=== PATIENT | male | born 1950 | race Caucasian/White ===

== ENCOUNTER 2025-04-03 14:02 | Emergency (ER) | payer MEDICARE, SELFPAY ==
--- NOTE | ~2025-04-03 | CT_ITS ---
CLINICAL INDICATION: Abdominal pain and diarrhea COMPARISON: None. TECHNIQUE: Multiple contiguous axial images of the abdomen and pelvis were performed without the admi nistration of intravenous contrast The dose-length product (DLP) was 253.27 mGy-cm. Automated exposure control and iterative reconstruction technique were employed. FINDINGS/OBSERVATIONS: Visualized lower thorax: The bilateral lung bases are clear. The heart is of normal size, without pericardial effusion. Small hiatal hernia is present. Liver: The liver demonstrates homogeneous attenuation and is enlarged measuring 20 cm in longitudinal dimens ion. Gallbladder and biliary system: The gallbladder is only minimally distended, and otherwise unremarkable. Pancreas: Limited evaluation of the pancreas secondary to the lack of intravenous contrast. Spleen: The spleen demonstrates homogeneous attenuation and is not enlarged. Kidneys: Multiple 2 and 3 mm nonobstructing stones within the bilateral kidneys. The remainder of the bilateral kidneys are otherwise unremarkable, without hydronephrosis or addition al renal calculi. Adrenal glands: Unremarkable. Gastrointestinal tract: Colonic diverticulosis without surrounding inflammatory change. Prominent loops of small bowel with minimal dilatation and mural thickening are identified within the mid abdomen, to the left of midline. Appendix: The appendix is of normal caliber (axial series, images 102 through 128) Vasculature: Densely calcified atherosclerotic disease. Lymph nodes: Limited evaluation without intravenous contrast. Pelvic structures: The bladder is decompressed and demonstrates thickened lo with surrounding inflammatory change. The prostate gland is not enlarged. Body wall and musculoskeletal: Large fat-containing left inguinal hernia. Age-appropriate degenerative disease within the lumbosacral spine IMPRESSION: Prominent loops of small bowel with minimal dilatation and mural thickening within the mid abdomen, t o the left of midline for which a focal enteritis is suspected. Otherwise, no acute pathology within the abdomen or pelvis, as detailed above. Reviewed, dictated and finalized at location A. IMPRESSION: Prominent loops of small bowel with minimal dilatation and mural thickening wit hin the mid abdomen, to the left of midline for which a focal enteritis is susp ected. Otherwise, no acute pathology within the abdomen or pelvis, as detailed above.
[2025-04-03 14:04] VITALS: BP 147/79; PULSE 100; RESP 20; TEMP 36.6; O2SAT 99
--- NOTE | 2025-04-03 14:46 | ED_ITS ---
HPI - Abdominal Pain General Chief Complaint: Abdominal Pain Stated Complaint: upset stomache Time Seen by Provider: 04/03/25 14:27 Source: patient Mode of arrival: ambulatory Limitations: no limitations History of Present Illness HPI narrative: patient is a 74-year-old male with dark stools for 4 days and a sore throat for a week and a half. He also complained of sleep issues and chronic pain and we discussed that is not going to be reviewed today per chronicity. He has associated abdominal pain diffusely. MD elicited complaint: abdominal pain Pertinent past history: none Onset (ago): day(s) (4) Pain Consistency: constant Location: diffuse Severity: mild Pain scale (0-10): 3 Quality: cramping and sharp Radiation: none Migration to: no migration Exacerbating factors: other ( stress per patient) Relieving factors: nothing Context: confirms other ( patient having dark stools for 4 days as well as some abdominal pain and a sore throat for a week and a half.) Associated symptoms: nausea, diarrhea and melena Review of Systems 2 Review of Systems: All systems reviewed & are unremarkable except as noted in HPI and below Constitutional: Constitutional: Reports no additional constitutional complaints Eyes: Eyes: Reports no additional eye complaints ENT: Reports system reviewed and no additional complaints, except as documented Cardiovascular: Cardiovascular: Reports no additional cardiovascular complaints Respiratory: Respiratory: Reports no additional respiratory complaints Gastrointestinal: Gastrointestinal: Reports no additional gastrointestinal complaints Genitourinary: Genitourinary: Reports no additional male genitourinary complaints Musculoskeletal: Musculoskeletal: Reports no additional musculoskeletal complaints Integumentary/Breasts: Skin/Breast: Reports system reviewed and no additional complaints, except as docu Neurologic: Reports system reviewed and no additional complaints, except as documented Psychiatric: Psychiatric: Reports no additional psychiatric complaints Endocrine: Endocrine: Reports no additional endocrine complaints Hematologic/Lymphatic: Hematologic/Lymphatic: Reports no additional hematologic/lymphatic complaints Allergic/Immunologic: Allergic/Immunologic: Reports no additional allergic/immunologic complaints Exam 2 Const: General: ill appearing ( Pale) Nutritional Appearance: well nourished Orientation/consciousness: patient oriented x3 Limitations: no limitations HENMT: Head: normal to inspection Ears: external ears normal F chrissy/Nose/Sinus: Normal external nose present Eyes: Conjunctivae: conjunctivae normal Pupils: Equal, round and reactive pupils present EOM: EOMs intact bilaterally Neck: Neck: normal visual inspection Chest: Chest palpation & inspection: normal inspection of the chest Resp: Effort & Inspection: normal respiratory effort and not labored A uscultation: clear to auscultation bilaterally and no crackles Cardio: Rate: regular rate Rhythm: regular rhythm Heart sounds: no murmurs GI: Inspection: non-distended GI Palp: Yes Soft to palpation, Yes Tenderness to palpation present (GI) ( diffusely), No Guarding due to palpation present (GI), No Rigid due to palpation, No Hernia present, No Palpable mass present and No Rebound tenderness present Auscultation: normal bowel sounds : General: Yes bladder normal to palpation Back/Spine/Pelvis: Back: no CVA tenderness Skin: General skin exam: No normal color, no jaundice and pallor Rashes: no rashes Wounds: no wounds Neuro: General: patient oriented x3, moves all extremities, no meningeal signs, no focal motor deficits and CN's II-XI intact bilaterally Cranial nerves: Yes Nystagmus not present Speech: normal speech Gait exam (Neuro): Normal gait present Extrem: General: normal to inspection Psych: Mental Status: mental status grossly normal Affect: normal affect Attitude: cooperative Course Vital Signs Vital signs: Vital Signs Temperature 36.6 C 04/03/25 14:04 Pulse Rate 100 04/03/25 14:04 Respiratory Rate 20 04/03/25 14:04 Blood Pressure 147/79 H 04/03/25 14:04 Pulse Oximetry 99 04/03/25 14:04 Oxygen Delivery Room Air 04/03/25 14:04 Temperature 36.5 C 04/03/25 18:10 Pulse Rate 89 04/03/25 18:10 Respiratory Rate 16 04/03/25 18:10 Blood Pressure 170/76 H 04/03/25 18:10 Pulse Oximetry 100 04/03/25 18:10 Oxygen Delivery Room Air 04/03/25 18:10 MDM - Abdominal Pain MDM Narrative Medical decision making narrative: patient is a 74-year-old male with a sore throat, abdominal pain and nausea with dark stools for 4 days. We will do an abdominal pain workup and strep. patient was presented with the results which is enteritis and an elevated white blood count, blood in the stool and internal bleeding, low sodium and high potassium. I explained to the patient that he needs treatment at this time and to be admitted. Patient said he had to get home to his dogs and he cannot prepare to stay or stay longer in the emergency room. Patient is AAO x4 and understands the risks and benefits which were all explained to him with the nurse present. Patient has the decision making capacity and reasoning to sign this form properly understanding the fact that he could have morbidity and mortality secondary to these findings. He understands that he needs treatment immediately now that we have made these findings but he would like to leave [facility] at this time. Lab Data Attestation: I reviewed the patient's lab results. 04/03/25 15:31 04/03/25 15:31 Labs: Lab Results 04/03/25 04/03/25 Range/Units 15:31 16:45 WBC 15.5 H (4.8-10.8) K/mm3 RBC 2.96 L (4.70-6.10) M/mm3 Hgb 9.3 L (12.4-15.3) g/dL Hct 27.3 L (37.0-46.0) % MCV 92.2 (78.0-102.0) fL MCH 31.4 H (27.0-31.0) pg MCHC 34.1 (32-36) g/dL RDW 12.5 (11.6-14.4) % Plt Count 303 (150-420) K/mm3 MPV 8.1 L (8.7-11.0) fl Immature Gran % (Auto) 1.2 H (0.0-0.0) % Neut % (Auto) 78.6 H (50.0-70.0) % Lymph % (Auto) 9.0 L (18.0-42.0) % [place] % (Auto) 10.1 (2.0-11.0) % Eos % (Auto) 0.7 L (1.0-6.0) % Baso % (Auto) 0.4 (0.0-1.0) % Lymph # (Auto) 1.40 (1.10-4.50) K/mm3 [place] # (Auto) 1.57 H (0.10-0.90) K/mm3 Eos # (Auto) 0.11 (0.02-0.50) K/mm3 Baso # (Auto) 0.06 (0.00-0.10) K/mm3 Abs Immat Gran (auto) 0.18 H (0.00-0.00) K/mm3 Absolute Neuts (auto) 12.19 H (1.70-7.20) K/mm3 Absolute Nucleated RBC 0.00 (0.00-0.00) K/mm3 Nucleated RBC % 0.0 (0-0.0) % PT 9.9 (9.50-12.1) Seconds INR 0.9 APTT 28.8 (23.9-30.70) Sec Sodium 121 L (137-145) mmol/L Potassium 5.2 H (3.4-5.0) mmol/L Chloride 91 L (98-107) mmol/L Carbon Dioxide 26 (22-30) mmol/L Anion Gap 4 (4-12) mmol/L BUN 13 (9-20) mg/dL Creatinine 0.60 L (0.7-1.3) mg/dL Estim Creat Clear Calc 91 ml/min Estimated GFR > 60 (59 - ) Glucose 103 (65-110) mg/dL Calculated Osmolality 252 L (285-295) mOsm/kg Lactic Acid 1.4 (0.4-2.0) mmol/L Calcium 8.6 (8.4-10.2) mg/dL Total Bilirubin 0.4 (0.2-1.3) mg/dL AST 30 (17-59) U/L ALT 17 (6-50) U/L Alkaline Phosphatase 75 (38-126) U/L Total Protein 6.7 (6.3-8.2) g/dL Albumin 3.7 (3.5-5.1) g/dL Lipase 53 (16-77) U/L Urine Color Yellow (Yellow) Urine Appearance Clear (Clear) Urine pH 6.0 (5.0-8.0) Ur Specific [place] 1.015 (1.010-1.020) Urine Protein Negative (Negative) Urine Glucose (UA) Negative (Negative) Urine Ketones 1+ H (Negative) Ur Blood (Man) Negative (Negative) Urine Nitrate Negative (Negative) Urine Bilirubin Negative (Negative) Urine Urobilinogen 0.2 (0.2-1.0) mg/dL Leukocyte Esterase Rfl Negative (Negative) IBIS/UL Stool Occult Blood Positive A (Negative) Group A Strep (PCR) Not detected (Negative) Imaging Data Attestation: I personally reviewed and interpreted this imaging study as follows: Radiologist's impression: ITS Impressions Abdomen/Pelvis CT 04/03/25 15:34 IMPRESSION: Prominent loops of small bowel with minimal dilatation and mural thickening within the mid abdomen, to the left of midline for which a focal enteritis is suspected. Otherwise, no acute pathology within the abdomen or pelvis, as detailed above. Discharge Plan Discharge Clinical Impression: Enteritis, Melena, Hyponatremia, Hyperkalemia, Fecal occult blood test positive Leukocytosis Qualifiers: Leukocytosis type: unspecified Qualified Code(s): D72.829 - Elevated white blood cell count, unspecified Patient Disposition: Left Against Medical Advice Condition: Serious Patient Language: Tajik Follow-up/Referrals: UNKNOWN,DOCTOR [Non-Staff] - Time of Disposition: 19:09
[2025-04-03 15:37] LABS: Add Urine Microscopic? NO; Appearance Urine Clear (Clear); Basophils Absolute Auto 0.06 K/mm3 (0.00-0.10); Basophils Percent Auto 0.4 % (0.0-1.0); Bilirubin Urine Negative (Negative); Blood Urine Negative (Negative); Color Urine Yellow (Yellow); Eosinophils Absolute Auto 0.11 K/mm3 (0.02-0.50); Eosinophils Percent Auto 0.7 % (1.0-6.0); Glucose Urine UA Negative (Negative); Hematocrit 27.3 % (37.0-46.0); Hemoglobin 9.3 g/dL (12.4-15.3); Immature Granulocyte Absolute 0.18 K/mm3 (0.00-0.00); Immature Granulocyte Percent A 1.2 % (0.0-0.0); Ketones Urine 1+ (Negative); Leukocyte Esterase Ur Negative LEU/UL (Negative); Mean Corpuscular HGB Conc 34.1 g/dL (32-36); Mean Corpuscular Hemoglobin 31.4 pg (27.0-31.0); Mean Corpuscular Volume 92.2 fL (78.0-102.0); Mean Platelet Volume 8.1 fl (8.7-11.0); Monocytes Absolute Auto 1.57 K/mm3 (0.10-0.90); Monocytes Percent Auto 10.1 % (2.0-11.0); Neutrophils Absolute Auto 12.19 K/mm3 (1.70-7.20); Neutrophils Percent Auto 78.6 % (50.0-70.0); Nitrate Urine Negative (Negative); Platelet Count Result 303 K/mm3 (150-420); Protein Urine Negative (Negative); Red Blood Count 2.96 M/mm3 (4.70-6.10); Red Cell Distribution Width 12.5 % (11.6-14.4); Specific Grav Ur 1.015 (1.010-1.020); Urobilinogen Urine 0.2 mg/dL (0.2-1.0); White Blood Count 15.5 K/mm3 (4.8-10.8)
[2025-04-03 15:52] LABS: Alanine Aminotransferase 17 U/L (6-50); Albumin Level 3.7 g/dL (3.5-5.1); Alkaline Phosphatase 75 U/L (38-126); Anion Gap 4 mmol/L (4-12); Aspartate Amino Transferase 30 U/L (17-59); Bilirubin,Total 0.4 mg/dL (0.2-1.3); Blood Urea Nitrogen 13 mg/dL (9-20); Calcium 8.6 mg/dL (8.4-10.2); Carbon Dioxide 26 mmol/L (22-30); Chloride 91 mmol/L (98-107); Estimated CRCL calculation 91 ml/min; Estimated Glomerular Filt Rate > 60; Glucose 103 mg/dL (65-110); Osmolality Calculated 252 mOsm/kg (285-295); Potassium 5.2 mmol/L (3.4-5.0); Sodium 121 mmol/L (137-145); Total Protein 6.7 g/dL (6.3-8.2)
[2025-04-03 15:53] LABS: INR 0.9; Partial Thromboplastin Time 28.8 Sec (23.9-30.70); Prothrombin Time 9.9 Seconds (9.50-12.1)
[2025-04-03 15:58] LABS: Lactic Acid Reflex 1.4 mmol/L (0.4-2.0)
[2025-04-03 16:00] VITALS: BP 174/76; PULSE 84; RESP 20; O2SAT 94
[2025-04-03 16:01] LABS: Lipase 53 U/L (16-77)
[2025-04-03 16:02] LABS: Strep Group A RT-PCR NOT DETECTED (Negative)
--- NOTE | 2025-04-03 16:35 | PC.NURSE ---
pt changed into gown for rectal exam per dr vegas.
[2025-04-03 16:56] LABS: Occult Blood Positive (Negative)
[2025-04-03 18:10] VITALS: BP 170/76; PULSE 89; RESP 16; TEMP 36.5; O2SAT 100
--- NOTE | 2025-04-03 19:04 | PC.NURSE ---
report to luis carlos jimenez
== END 2025-04-03 19:05 | disposition left against medical advice (07) ==
PROVIDERS: Emergency Provider Emergency Medicine; PCP Internal Medicine
DX: K52.9 Noninfective gastroenteritis and colitis, unspecified (principal); K92.1 Melena; E87.5 Hyperkalemia; D72.829 Elevated white blood cell count, unspecified
CPT/HCPCS: 36415; 74176; 80053; 81003; 82272; 83605; 83690; 85025; 85610; 85730; 87651; 99284

== ENCOUNTER 2025-04-06 10:21 | Emergency (ER) | payer MEDICARE, SELFPAY ==
[2025-04-06] VITALS (36 sets, daily range): BP systolic 118–149; BP diastolic 63–102; PULSE 84–113; RESP 12–21; TEMP 36–36.8; O2SAT 96–100
--- NOTE | ~2025-04-06 | CT_ITS ---
EXAMINATION: CT brain wo con DATE: 04/06/2025 11:53 INDICATION: Confusion, dizziness and anemia. TECHNIQUE: Computed tomography (CT) of the head was performed without intravenous contrast. Sagittal and coronal reconstructions were performed. The mA was adjusted according to patient size. Iterative reconstruction technique was employed. The dose-length product was 605.33 mGy-cm. COMPARISON: None FINDINGS: No acute intracranial hemorrhage, acute infarction or abnormal extra axial fluid collection. There is mild scattered white matter hypoattenuation consistent with chronic small vessel ischemic disease.. Symmetric prominence of the sulci consistent with mild age-appropriate diffuse cerebral volume loss. Ventricles are normal and symmetric. No mass/mass effect. Prominent mucosal thickening in the right maxillary sinus which along with the left maxillary sinus demonstrates thickened cirrhotic lo cons istent with chronic sinusitis. The orbits and mastoid air cells are normal. Intracranial calcified ce rebral atherosclerosis is noted. IMPRESSION: 1. Age-related changes including mild diffuse volume loss and mild scattered white matter hypoattenua tion consistent with chronic small vessel ischemic disease. Reviewed, dictated and finalized at location A. IMPRESSION: 1. Age-related changes including mild diffuse volume loss and mild scattered wh ite matter hypoattenuation consistent with chronic small vessel ischemic diseas e.
--- NOTE | ~2025-04-06 | CT_ITS ---
CT chest abdomen pelvis w con Ordering provider: Felipe Ndiaye MD History: 74 years Male with . abdominal pain,GIB?,BLOOD IN STOOL,CONFUSION . Comparison: None. Technique: CT chest with IV contrast. CT abdomen and pelvis CT abdomen and pelvis with IV and with or al contrast. The dose-length product was 512.68 mGy-cm. 100 mL Omnipaque 350 was given IV. FINDINGS: CHEST: --VISUALIZED THORACIC INLET: Normal. --MEDIASTINUM: Aorta/coronary arteries: Mild atheromatous disease. Heart/other: The heart is not enlarged. Lymph nodes: No mediastinal or hilar adenopathy. --LUNGS: No pulmonary nodules or masses. No infiltrates or effusions. No pneumothorax. Underlying emp hysematous changes. --MUSCULOSKELETAL: Soft tissues: The superficial soft tissues are normal. Bones: Age appropriate degenerative changes of the spine. Healing fracture in the left lower thorax r ibs. ABDOMEN/PELVIS: --MUSCULOSKELETAL: Bones: Loss of height is seen in L4 suggestive of old compression fracture. Age appropriate degenerat pham changes of the spine. Bilateral sacroiliitis with fusion. Superficial soft tissues: Bilateral fat containing inguinal hernias larger on the left side which ursula sures 9.4 x 1.9 cm. The neck of the hernia measures 3.3 cm. Otherwise, The superficial soft tissues a re normal. --UPPER ABDOMINAL ORGANS: Liver: Normal. Gallbladder: Normal. Spleen: Normal. Stomach/duodenum: Normal. Pancreas: Normal. Slightly prominent pancreatic duct. Adrenals: Normal. Kidneys: Normal. --PELVIC ORGANS: The bladder shows slightly thickened wall. Evaluation for cystitis advised. No bladd er stones. --BOWEL AND MESENTERY: Colon: No evidence of diverticulitis.. Small bowel loops are seen in the right pararectal area. Possi bility of internal hernia cannot be excluded. Normal appendix. Small Bowel: Normal. No obstruction. Peritoneum/mesentery: No free air or free fluid. No mesenteric lymphadenopathy. --RETROPERITONEUM: Moderate atheromatous disease of the abdominal aorta. No retroperitoneal lymphad enopathy. IMPRESSION: CHEST: 1. No acute cardiopulmonary pathology. ABDOMEN/PELVIS: 1. No evidence of appendicitis, diverticulitis or intestinal obstruction. Bowel loops are seen in th e right pararectal area with pressure on the rectum. Possibility of internal hernia is not excluded. 2. Slightly thickened wall of the urinary bladder which may indicate cystitis. 3. Large left inguinal hernia. Reviewed, dictated and finalized at location A. IMPRESSION: CHEST: 1. No acute cardiopulmonary pathology. ABDOMEN/PELVIS: 1. No evidence of appendicitis, diverticulitis or intestinal obstruction. Esteban l loops are seen in the right pararectal area with pressure on the rectum. Poss ibility of internal hernia is not excluded. 2. Slightly thickened wall of the urinary bladder which may indicate cystitis. 3. Large left inguinal hernia.
--- NOTE | 2025-04-06 10:42 | ED.GENADULT ---
HPI - General Adult General Chief complaint: Abdominal Pain Stated complaint: constipation Source: patient Mode of arrival: ambulatory Limitations: altered mental status History of Present Illness HPI narrative: 74 years old white male came to the ED with his neighbor because of confusion. Last time was seen by the neighbor at his baseline 3 days ago. Patient came to our emergency room 2 days ago with black stool, could wait for blood workup and signed against medical advice. Patient does not take medicine, He drinks alcohol, unknown last drink, or last eat. He denies any fever, chills, nausea, vomiting, complaining of abdominal pain. Related Data Home Medications ?Medication ?Instructions ?Recorded ?Confirmed ?Last Taken ?Type No Home Medications 04/06/25 04/06/25 Unknown History Allergies Allergy/AdvReac Type Severity Reaction Status Date / Time No Known Allergies Allergy Verified 04/06/25 11:56 Review of Systems Review of Systems: All systems reviewed & are unremarkable except as noted in HPI and below Exam Narrative: General appearance: Well-developed, well-nourished Skin: Pale , grayish skin Head: Normocephalic, nontraumatic Eyes: Clear conjunctiva ENT: Oropharynx normal, ears normal, nose normal Neck: Supple, nontender Chest and respiratory: Airway patent, no respiratory distress, no accessory muscle use scattered coarse rhonchi and wheezing bilaterally Heart: Regular rate/rhythm Abdomen: Soft, nontender, no organomegaly, quiet bowel sounds , GUAIAC STOOL POSITIVE FOR BLOOD, STOOL IS BLACK Vascular: Normal peripheral pulses, normal capillary refill. Musculoskeletal: Normal range of motion, nontender back Neurologic: Alert and oriented to his name only Course Consultations Consultation #1: DR TRIPATHI Date: 04/06/25 Vital Signs Vital signs: Vital Signs Temperature 36.4 C L 04/06/25 10:21 Pulse Rate 102 H 04/06/25 10:21 Respiratory Rate 18 04/06/25 10:21 Blood Pressure 146/78 H 04/06/25 10:21 Pulse Oximetry 100 04/06/25 10:21 Oxygen Delivery Room Air 04/06/25 10:21 Temperature 36.8 C 04/06/25 15:18 Pulse Rate 89 04/06/25 15:18 Respiratory Rate 20 04/06/25 15:18 Blood Pressure 140/69 04/06/25 15:18 Pulse Oximetry 99 04/06/25 15:18 Oxygen Delivery Room Air 04/06/25 14:01 Medical Decision Making [facility] Narrative Medical decision making narrative: patient came with confusion, abdominal pain, possible black stool Vital signs showing heart rate of 102 otherwise within normal limit Physical examination showing pale grayish colored skin, oriented to his name only otherwise insignificant differential diagnosis include stroke, hepatic encephalopathy, metabolic encephalopathy,alcohol intoxication, electrolyte imbalance, dehydration, anemia, Blood workup today include CBC, CMP, coags, lipase, CPK, alcohol level, showed WBC 17.3, hemoglobin 6.6, hematocrit 18.7, sodium 117, glucose 110, calcium 8.2, Urinalysis showed NO ACUTE ABNORMALITIES CT head without contrast showed NO ACUTE ABNORMALITIES CT abdomen and pelvis with IV contrast showed LEFT INGUINAL HERNIA DIAGNOSIS INCLUDE ANEMIA, GI BLEED, HYPONATREMIA, ACUTE ALTERED MENTAL STATUS, TRANSFERRED TO [facility] DISCUSSED WITH IN THE ED PATIENT RECEIVED 1 L OF NORMAL SALINE, 40 MG OF PROTONIX IV, 1 UNIT OF BLOOD WITH SIGNIFICANT IMPROVEMENT OF HIS MENTAL STATUS. CURRENTLY PATIENT IS AWAKE, ALERT AND ORIENTED X4 AND WOULD LIKE TO GO HOME. I DECLARE THAT I HAVE PERSONALLY EXPLAINED TO THE PATIENT THE RISKS AND CONSEQUENCES INVOLVED IN LEAVING THIS FACILITY AT THIS TIME. THE BENEFITS OF CONTINUED TREATMENT AND/OR HOSPITALIZATION. AND THE ALTERNATIVES. IF ANY. TO CONTINUED TREATMENT AND/OR HOSPITALIZATION. IF APPLICABLE.I HAVE NOT IDENTIFIED ANY PSYCHOSIS, DRUGS, MENTAL ILLNESS, OR MEDICAL ILLNESS THAT ALTERS DECISION-MAKING CAPACITY (REASONING ABILITIES ). Vital Signs Vital Signs: Vital Signs Temperature 36.4 C L 04/06/25 10:21 Pulse Rate 102 H 04/06/25 10:21 Respiratory Rate 18 04/06/25 10:21 Blood Pressure 146/78 H 04/06/25 10:21 Pulse Oximetry 100 04/06/25 10:21 Oxygen Delivery Room Air 04/06/25 10:21 Temperature 36.8 C 04/06/25 15:18 Pulse Rate 89 04/06/25 15:18 Respiratory Rate 20 04/06/25 15:18 Blood Pressure 140/69 04/06/25 15:18 Pulse Oximetry 99 04/06/25 15:18 Oxygen Delivery Room Air 04/06/25 14:01 Lab Data 04/06/25 10:52 04/06/25 10:52 Labs: Lab Results 04/06/25 04/06/25 04/06/25 Range/Units 10:43 10:48 10:52 WBC 17.3 H (4.8-10.8) K/mm3 RBC 2.04 L (4.70-6.10) M/mm3 Hgb 6.6 L* (12.4-15.3) g/dL Hct 18.7 L* (37.0-46.0) % MCV 91.7 (78.0-102.0) fL MCH 32.4 H (27.0-31.0) pg MCHC 35.3 (32-36) g/dL RDW 13.1 (11.6-14.4) % Plt Count 354 (150-420) K/mm3 MPV 8.2 L (8.7-11.0) fl Immature Gran % (Auto) 1.6 H (0.0-0.0) % Neut % (Auto) 78.9 H (50.0-70.0) % Lymph % (Auto) 8.5 L (18.0-42.0) % [place] % (Auto) 10.5 (2.0-11.0) % Eos % (Auto) 0.2 L (1.0-6.0) % Baso % (Auto) 0.3 (0.0-1.0) % Lymph # (Auto) 1.46 (1.10-4.50) K/mm3 [place] # (Auto) 1.81 H (0.10-0.90) K/mm3 Eos # (Auto) 0.04 (0.02-0.50) K/mm3 Baso # (Auto) 0.05 (0.00-0.10) K/mm3 Abs Immat Gran (auto) 0.28 H (0.00-0.00) K/mm3 Absolute Neuts (auto) 13.62 H (1.70-7.20) K/mm3 Absolute Nucleated RBC 0.00 (0.00-0.00) K/mm3 Nucleated RBC % 0.0 (0-0.0) % PT 10.1 (9.50-12.1) Seconds INR 0.9 APTT 27.3 (23.9-30.70) Sec Sodium 117 L* (136-145) mmol/L Potassium 3.5 (3.5-5.1) mmol/L Chloride 83 L (98-108) mmol/L Carbon Dioxide 26 (21-32) mmol/L Anion Gap 8 (4-12) mmol/L BUN 9 (7-18) mg/dL Creatinine 0.71 (0.70-1.30) mg/dL Estim Creat Clear Calc 75 ml/min Estimated GFR > 60 (59 - ) Glucose 110 H (70-99) mg/dL POC Capillary Glucose (65-105) mg/dl Calculated Osmolality 243 L (285-295) mOsm/kg Calcium 8.2 L (8.5-10.1) mg/dL Total Bilirubin 0.3 (0.00-1.00) mg/dL AST 22 (15-37) U/L ALT 23 (16-63) U/L Alkaline Phosphatase 55 (46-116) U/L Ammonia 14 (11-32) umol/L Total Creatine Kinase 53 (39-308) U/L Troponin I 7.8 (0.00-60.4) ng/L Total Protein 6.3 L (6.4-8.2) g/dL Albumin 2.6 L (3.4-5.0) g/dL TSH 2.55 (0.36-3.74) uIU/mL Urine Color Light yellow (Yellow) Urine Appearance Clear (Clear) Urine pH 6.0 (5.0-8.0) Ur Specific [place] 1.010 (1.010-1.020) Urine Protein Negative (Negative) Urine Glucose (UA) Negative (Negative) Urine Ketones 1+ H (Negative) Ur Blood (Man) Negative (Negative) Urine Nitrate Negative (Negative) Urine Bilirubin Negative (Negative) Urine Urobilinogen 0.2 (0.2-1.0) mg/dL Leukocyte Esterase Rfl Negative (Negative) IBIS/UL Stool Occult Blood Positive A (Negative) Salicylates 1.4 L (2.8-20.0) mg/dL Urine Opiates Screen Negative (Negative) Urine Methadone Screen Negative (Negative) Acetaminophen 0 L (10-30) ug/mL Ur Barbiturates Screen Negative (Negative) Ur Phencyclidine Scrn Negative (Negative) Ur Amphetamine Screen Negative (Negative) U Benzodiazepines Scrn Negative (Negative) Urine Cocaine Screen Negative (Negative) U Cannabinoids Screen Negative (Negative) Ethyl Alcohol 3 (0-6) mg/dL Blood Type Antibody Screen Crossmatch 04/06/25 04/06/25 Range/Units 10:56 11:17 WBC (4.8-10.8) K/mm3 RBC (4.70-6.10) M/mm3 Hgb (12.4-15.3) g/dL Hct (37.0-46.0) % MCV (78.0-102.0) fL MCH (27.0-31.0) pg MCHC (32-36) g/dL RDW (11.6-14.4) % Plt Count (150-420) K/mm3 MPV (8.7-11.0) fl Immature Gran % (Auto) (0.0-0.0) % Neut % (Auto) (50.0-70.0) % Lymph % (Auto) (18.0-42.0) % [place] % (Auto) (2.0-11.0) % Eos % (Auto) (1.0-6.0) % Baso % (Auto) (0.0-1.0) % Lymph # (Auto) (1.10-4.50) K/mm3 [place] # (Auto) (0.10-0.90) K/mm3 Eos # (Auto) (0.02-0.50) K/mm3 Baso # (Auto) (0.00-0.10) K/mm3 Abs Immat Gran (auto) (0.00-0.00) K/mm3 Absolute Neuts (auto) (1.70-7.20) K/mm3 Absolute Nucleated RBC (0.00-0.00) K/mm3 Nucleated RBC % (0-0.0) % PT (9.50-12.1) Seconds INR APTT (23.9-30.70) Sec Sodium (136-145) mmol/L Potassium (3.5-5.1) mmol/L Chloride (98-108) mmol/L Carbon Dioxide (21-32) mmol/L Anion Gap (4-12) mmol/L BUN (7-18) mg/dL Creatinine (0.70-1.30) mg/dL Estim Creat Clear Calc ml/min Estimated GFR (59 - ) Glucose (70-99) mg/dL POC Capillary Glucose 119 H (65-105) mg/dl Calculated Osmolality (285-295) mOsm/kg Calcium (8.5-10.1) mg/dL Total Bilirubin (0.00-1.00) mg/dL AST (15-37) U/L ALT (16-63) U/L Alkaline Phosphatase (46-116) U/L Ammonia (11-32) umol/L Total Creatine Kinase (39-308) U/L Troponin I (0.00-60.4) ng/L Total Protein (6.4-8.2) g/dL Albumin (3.4-5.0) g/dL TSH (0.36-3.74) uIU/mL Urine Color (Yellow) Urine Appearance (Clear) Urine pH (5.0-8.0) Ur Specific [place] (1.010-1.020) Urine Protein (Negative) Urine Glucose (UA) (Negative) Urine Ketones (Negative) Ur Blood (Man) (Negative) Urine Nitrate (Negative) Urine Bilirubin (Negative) Urine Urobilinogen (0.2-1.0) mg/dL Leukocyte Esterase Rfl (Negative) IBIS/UL Stool Occult Blood (Negative) Salicylates (2.8-20.0) mg/dL Urine Opiates Screen (Negative) Urine Methadone Screen (Negative) Acetaminophen (10-30) ug/mL Ur Barbiturates Screen (Negative) Ur Phencyclidine Scrn (Negative) Ur Amphetamine Screen (Negative) U Benzodiazepines Scrn (Negative) Urine Cocaine Screen (Negative) U Cannabinoids Screen (Negative) Ethyl Alcohol (0-6) mg/dL Blood Type A Negative Antibody Screen Negative Crossmatch See Detail Imaging Data Radiologist's impression: Impressions Head CT 04/06/25 11:56 IMPRESSION: 1. Age-related changes including mild diffuse volume loss and mild scattered white matter hypoattenuation consistent with chronic small vessel ischemic disease. Chest/Abdomen/Pelvis CT 04/06/25 11:59 IMPRESSION: CHEST: 1. No acute cardiopulmonary pathology. ABDOMEN/PELVIS: 1. No evidence of appendicitis, diverticulitis or intestinal obstruction. Bowel loops are seen in the right pararectal area with pressure on the rectum. Possibility of internal hernia is not excluded. 2. Slightly thickened wall of the urinary bladder which may indicate cystitis. 3. Large left inguinal hernia. Critical Care Time Critical Care Time Critical Care Time: No Discharge Plan Discharge Clinical Impression: Anemia, GI (gastrointestinal bleed), Hyponatremia Patient Disposition: Left Against Medical Advice Condition: Critical Patient Language: Korean Prescriptions: No Action No Home Medications Follow-up/Referrals: Kit Appiah MD [Primary Care Provider] -
--- NOTE | 2025-04-06 10:43 | ECG_ITS ---
Test Date: 2025-04-06 11:03:24 Measurements Intervals [place] Rate: 100 P: 77 RI: 167 QRS: 82 QRSD: 100 T: 75 QT: 356 QTc: 461 Interpretive Statements SINUS TACHYCARDIA WITH OCCASIONAL SUPRAVENTRICULAR PREMATURE COMPLEXES MODERATE ST DEPRESSION [0.05+ mV ST DEPRESSION] No previous ECG available for comparison Electronically Signed On 04-07-2025 13:57:37 CDT by Tatiana Gutierrez M.D.
[2025-04-06 10:57] LABS: Basophils Absolute Auto 0.05 K/mm3 (0.00-0.10); Basophils Percent Auto 0.3 % (0.0-1.0); Eosinophils Absolute Auto 0.04 K/mm3 (0.02-0.50); Eosinophils Percent Auto 0.2 % (1.0-6.0); Immature Granulocyte Absolute 0.28 K/mm3 (0.00-0.00); Immature Granulocyte Percent A 1.6 % (0.0-0.0); Lymphocytes Absolute Auto 1.46 K/mm3 (1.10-4.50); Lymphocytes Percent Auto 8.5 % (18.0-42.0); Mean Corpuscular HGB Conc 35.3 g/dL (32-36); Mean Corpuscular Hemoglobin 32.4 pg (27.0-31.0); Mean Corpuscular Volume 91.7 fL (78.0-102.0); Mean Platelet Volume 8.2 fl (8.7-11.0); Monocytes Absolute Auto 1.81 K/mm3 (0.10-0.90); Monocytes Percent Auto 10.5 % (2.0-11.0); Neutrophils Absolute Auto 13.62 K/mm3 (1.70-7.20); Neutrophils Percent Auto 78.9 % (50.0-70.0); Platelet Count Result 354 K/mm3 (150-420); Red Blood Count 2.04 M/mm3 (4.70-6.10); Red Cell Distribution Width 13.1 % (11.6-14.4); White Blood Count 17.3 K/mm3 (4.8-10.8)
[2025-04-06 10:58] LABS: Glucose Point of Care 119 mg/dl (65-105)
[2025-04-06] MEDS: SODIUM CHLORIDE 0.9% IV 1,000 ML 999 ML IV CONT (10:58)
--- NOTE | 2025-04-06 11:05 | PC.NURSE ---
rectal exam with specimen obtained per dr corral
[2025-04-06 11:09] LABS: Occult Blood Positive (Negative)
[2025-04-06 11:12] LABS: INR 0.9; Partial Thromboplastin Time 27.3 Sec (23.9-30.70); Prothrombin Time 10.1 Seconds (9.50-12.1)
[2025-04-06 11:17] LABS: Hematocrit 18.7 % (37.0-46.0); Hemoglobin 6.6 g/dL (12.4-15.3)
[2025-04-06 11:23] LABS: Alanine Aminotransferase 23 U/L (16-63); Albumin Level 2.6 g/dL (3.4-5.0); Alkaline Phosphatase 55 U/L (46-116); Ammonia 14 umol/L (11-32); Anion Gap 8 mmol/L (4-12); Aspartate Amino Transferase 22 U/L (15-37); Bilirubin,Total 0.3 mg/dL (0.00-1.00); Blood Urea Nitrogen 9 mg/dL (7-18); Calcium 8.2 mg/dL (8.5-10.1); Carbon Dioxide 26 mmol/L (21-32); Chloride 83 mmol/L (98-108); Creatine Kinase 53 U/L (39-308); Estimated CRCL calculation 75 ml/min; Estimated Glomerular Filt Rate > 60; Ethanol 3 mg/dL (0-6); Glucose 110 mg/dL (70-99); Osmolality Calculated 243 mOsm/kg (285-295); Potassium 3.5 mmol/L (3.5-5.1); Salicylate 1.4 mg/dL (2.8-20.0); Thyroid Stimulating Hormone 2.55 uIU/mL (0.36-3.74); Total Protein 6.3 g/dL (6.4-8.2); Troponin I 7.8 ng/L (0.00-60.4)
[2025-04-06 11:24] LABS: Acetaminophen 0 ug/mL (10-30); Sodium 117 mmol/L (136-145)
[2025-04-06] MEDS: PANTOPRAZOLE SODIUM IV 40 MG VIAL IV PUSH (12:03)
[2025-04-06] MEDS: SODIUM CHLORIDE 0.9% IV 250 ML 30 ML IV CONT (12:38)
[2025-04-06 12:47] LABS: Amphetamine Screen Urine Negative (Negative); Barbiturate Screen Urine Negative (Negative); Benzodiazepines Screen Urine Negative (Negative); Cannabinoid Screen Urine Negative (Negative); Cocaine Screen Urine Negative (Negative); Methadone Screen Urine Negative (Negative); Opiate Screen Urine Negative (Negative); Phencyclidine Screen Urine Negative (Negative)
[2025-04-06 12:59] LABS: Add Urine Microscopic? NO; Appearance Urine Clear (Clear); Bilirubin Urine Negative (Negative); Blood Urine Negative (Negative); Color Urine Light Yellow (Yellow); Glucose Urine UA Negative (Negative); Ketones Urine 1+ (Negative); Leukocyte Esterase Ur Negative LEU/UL (Negative); Nitrate Urine Negative (Negative); Protein Urine Negative (Negative); Urobilinogen Urine 0.2 mg/dL (0.2-1.0)
--- NOTE | 2025-04-06 13:00 | PC.NURSE ---
unit #1 ( [id number]) verified per 2 RN, silviano polanco rn and jonas hannon rn
--- NOTE | 2025-04-06 14:08 | PC.NURSE ---
pt repositioning self in cot. pt has chronic back pain. call pederson in reach. no needs at this time. friend in room with pt. awaiting bed assignment from michael
--- NOTE | 2025-04-06 17:33 | PC.NURSE ---
house piping inspector notified of cancelation for transfer,
== END 2025-04-06 17:07 | disposition left against medical advice (07) ==
PROVIDERS: Emergency Provider Emergency Medicine; PCP Internal Medicine
DX: D64.9 Anemia, unspecified (principal); K92.2 Gastrointestinal hemorrhage, unspecified; E87.1 Hypo-osmolality and hyponatremia
CPT/HCPCS: 36415; 36430; 70450; 71260; 74177; 80053; 80143; 80179; 80307; 81003; 82077; 82140; 82272; 82550; 82948; 84443; 84484; 85025; 85610; 85730; 86850; 86900; 86901; 86920; 93005; 96361; 96374; 99284; J2470; J7030; J7050; P9016; Q9967

== ENCOUNTER 2025-04-13 11:03 | Inpatient (IN) | payer MEDICARE, SELFPAY ==
[2025-04-13] VITALS (23 sets, daily range): BP systolic 103–146; BP diastolic 51–96; PULSE 76–109; RESP 14–22; TEMP 36.6–37.7; O2SAT 91–100
--- NOTE | ~2025-04-13 | CT_ITS ---
EXAMINATION: CT abdomen pelvis w con DATE: 04/13/2025 12:58 INDICATION: Upper abdominal pain TECHNIQUE: Computed tomography (CT) of the abdomen and pelvis was performed with 100 mL Omnipaque-350 intravenous contrast. Automated exposure control and iterative reconstruction technique were employe d. The dose-length product was 277.85 mGy-cm. COMPARISON: None FINDINGS: Lung bases are clear. Heart size is normal. No pericardial or pleural effusion. Liver, gallbladder, s pleen, bilateral adrenal glands and kidneys are normal. There is prominent edematous wall thickening of the lesser curvature of the stomach with 4.5 x 4.1 cm discontinuity in the enhancing mucosa suspic ious for a large gastric ulcer. There is stranding in the immediately adjacent fat between the stomac h and the otherwise normal-appearing pancreas. No abscess or free intraperitoneal gas or fluid. There is moderate colonic diverticulosis with a sigmoid predominance. There is no adjacent inflammatory ch shazia to suggest diverticulitis. Small bowel and appendix are normal. Large fat-containing direct ingu inal hernia measuring 12.2 x 8.1 x 4.3 cm. No pathologically enlarged abdominal or pelvic lymphadenop athy. There is calcified atherosclerosis of the aorta and many of the other arteries. Mild lumbar le vocurvature with mild spondylosis. 3 mm anterolisthesis L5 on S1 with severe associated bilateral fac et osteoarthritis. Schmorl's node along the superior endplate of L4. IMPRESSION: 1. Findings suggestive peptic ulcer disease with 4.5 x 4.1 cm gastric ulcer along the lesser curvatur e of the stomach but without abscess or free intraperineal gas or fluid to suggest a full-thickness p erforation. Activity in the extent posterior to the pancreas which appears normal but would consider correlation with lipase levels to exclude acute interstitial pancreatitis although suspicion is low. 2. Large fat-containing hiatal hernia. Reviewed, dictated and finalized at location A. IMPRESSION: 1. Findings suggestive peptic ulcer disease with 4.5 x 4.1 cm gastric ulcer tripp ng the lesser curvature of the stomach but without abscess or free intraperinea l gas or fluid to suggest a full-thickness perforation. Activity in the extent posterior to the pancreas which appears normal but would consider correlation w ith lipase levels to exclude acute interstitial pancreatitis although suspicion is low. 2. Large fat-containing hiatal hernia.
[2025-04-13 11:34] LABS: Basophils Absolute Auto 0.1 K/mm3 (0.0-0.1); Basophils Percent Auto 0.4 % (0.2-1.2); Eosinophils Percent Auto 0.1 % (0-4.4); Immature Granulocyte Absolute 0.18 K/mm3 (0.00-0.031); Immature Granulocyte Percent A 1.4 % (0-0.5); Lymphocytes Absolute Auto 0.89 K/mm3 (0.9-3.2); Lymphocytes Percent Auto 6.7 % (18.3-44.2); Mean Corpuscular HGB Conc 32.1 g/dl (32-36); Mean Corpuscular Hemoglobin 29.8 pg (26-34); Mean Corpuscular Volume 92.8 fl (80-100); Mean Platelet Volume 7.9 fl (7.4-10.4); Monocytes Absolute Auto 1.1 K/mm3 (0.1-0.6); Monocytes Percent Auto 8.3 % (2.6-8.5); Neutrophils Percent Auto 83.1 % (45.5-73.1); Platelet Count Result 386 k/mm3 (150-375); Red Blood Count 1.81 M/mm3 (4.6-6.20); Red Cell Distribution Width 14.3 % (11.5-14.5); White Blood Count 13.2 K/mm3 (4.5-10.0)
[2025-04-13 11:48] LABS: Hematocrit 16.8 % (42.0-52.0); Hemoglobin 5.4 g/dL (14.0-18.0)
[2025-04-13 11:50] LABS: Alanine Aminotransferase 16 U/L (6-50); Albumin Level 3.1 g/dL (3.5-5.1); Alkaline Phosphatase 54 U/L (38-126); Anion Gap 6 mmol/L (4-12); Aspartate Amino Transferase 28 U/L (17-59); Bilirubin,Total 0.1 mg/dL (0.2-1.3); Blood Urea Nitrogen 21 mg/dL (9-20); Calcium 8.2 mg/dL (8.4-10.2); Carbon Dioxide 28 mmol/L (22-30); Chloride 92 mmol/L (98-107); Estimated CRCL calculation 87 ml/min; Estimated Glomerular Filt Rate > 60; Glucose 111 mg/dL (65-110); Potassium 3.4 mmol/L (3.4-5.0); Sodium 126 mmol/L (137-145)
[2025-04-13 11:52] LABS: Prothrombin Time 13.5 Seconds (11.1-14.7)
[2025-04-13 11:53] LABS: Partial Thromboplastin Time 32.5 Seconds (22.3-36.8)
--- NOTE | 2025-04-13 12:33 | ED_ITS ---
HPI - General Adult General Chief complaint: GI Bleed Stated complaint: gi bleed Time Seen by Provider: 04/13/25 11:59 History of Present Illness HPI narrative: 74-year-old male presents emergency department for evaluation for GI bleed. Patient does admit to daily beer consumption. Patient states he has not drank in about the last 1.5 weeks. Patient states he began noticing black tarry stools approximately 2 weeks ago. Patient did present to [facility] last week and was supposed to be transferred [facility] but signed out AMA as he was waiting for the ambulance. Patient states that the black stools have improved and patient states he has not drink any alcohol. Patient does complain of abdominal pain. Related Data Home Medications ?Medication ?Instructions ?Recorded ?Confirmed ?Last Taken ?Type No Home Medications 04/06/25 04/13/25 Unknown History Allergies Allergy/AdvReac Type Severity Reaction Status Date / Time No Known Allergies Allergy Verified 04/13/25 15:19 Review of Systems 2 Review of Systems: All systems reviewed & are unremarkable except as noted in HPI and below PMFSH Family History Family History (Updated 04/13/25 @ 14:51 by India Junior RN) Father Alcohol abuse Social History Social History Smoking packs per day: 1.5 Smoking cigarettes per day: 30.0 Smoking status: Current every day smoker Tobacco type: cigarettes Second hand tobacco smoke exposure: Yes Alcohol intake: current Drinks per week: 25 Substance use: current Substance use type: marijuana Last use: 03/28/25 Do You Feel Safe in your Home?: Yes Lack of Transportation: No Lack of Food: Never True Current Housing: I Have Housing Concerned About Future Housing: No Difficulty Paying Gas/Electric Bills: No Difficulty Paying for Meds: No Currently Unemployed: No Education: Trade/Vocational Certificate Difficulty w/ Childcare or Family Care: No Spiritual care concerns: No Exam 2 Narrative: APPEARANCE: Well appearing, no pain, no distress, well-nourished. HEAD: normocephalic, atraumatic. EYES: PERRLA/EOMI, conjunctivae clear. NOSE: Normal no drainage EARS:TMS clear with good light reflex. THROAT: Pharynx clear, no exudate. NECK: Supple. No adenopathy, no masses. RESPIRATORY: Airway patent, respirations nonlabored. Clear to auscultation bilaterally, no rales, rhonchi, wheezing. CARDIOVASCULAR: Regular rate and rhythm without murmurs rubs or gallops. ABDOMINAL: Soft, nontender, nondistended, normal bowel sounds MUSCULOSKELETAL: Moves all extremities. Strength/ROM intact, No edema, No calf tenderness. NEURO: Alert. Cranial nerves II through XII intact. Good gait. Good coordination SKIN: Warm, dry. Normal Color Course Vital Signs Vital signs: Vital Signs Temperature 97.9 F 04/13/25 11:10 Pulse Rate 107 H 04/13/25 11:10 Respiratory Rate 17 04/13/25 11:10 Blood Pressure 146/58 H 04/13/25 11:10 Pulse Oximetry 91 04/13/25 11:10 Oxygen Delivery Room Air 04/13/25 11:10 Temperature 99.3 F 04/13/25 19:53 Pulse Rate 96 04/13/25 20:00 Respiratory Rate 18 04/13/25 20:00 Blood Pressure 110/51 L 04/13/25 20:00 Pulse Oximetry 98 04/13/25 20:54 Oxygen Delivery Room Air 04/13/25 20:54 Fraction of Inspired Oxygen 21 04/13/25 20:54 Medical Decision Making MDM Narrative Medical decision making narrative: 74-year-old male with history of daily alcohol use with no prior history of esophageal varices or GI bleed present to the emergency department for evaluation for black tarry stools for the last 1.5 weeks. Patient did receive a blood transfusion at an outside hospital a few days ago and signed out AMA. Patient's hemoglobin today was still 5.4 so 2 units of packed red blood cells were ordered. Additionally patient was treated with IV famotidine IV Protonix. Case was discussed with GI and they were consulted. Patient is currently afebrile but does have a leukocytosis of 13.2 and hemoglobin of 5.4. Patient has a sodium of 126 and a bilirubin of 3.1. Patient's blood type is A negative. Case was discussed with hospitalist patient was accepted for admission. Differential Diagnosis Differential Diagnosis: Upper GI bleed, lower GI bleed, ascites, perforated ulcer, esophageal varices Vital Signs Vital Signs: Vital Signs Temperature 97.9 F 04/13/25 11:10 Pulse Rate 107 H 04/13/25 11:10 Respiratory Rate 17 04/13/25 11:10 Blood Pressure 146/58 H 04/13/25 11:10 Pulse Oximetry 91 04/13/25 11:10 Oxygen Delivery Room Air 04/13/25 11:10 Temperature 99.3 F 04/13/25 19:53 Pulse Rate 96 04/13/25 20:00 Respiratory Rate 18 04/13/25 20:00 Blood Pressure 110/51 L 04/13/25 20:00 Pulse Oximetry 98 04/13/25 20:54 Oxygen Delivery Room Air 04/13/25 20:54 Fraction of Inspired Oxygen 21 04/13/25 20:54 Lab Data Lab results reviewed: Yes I reviewed the patient's lab results. 04/13/25 18:23 04/13/25 18:23 Labs: Lab Results 04/13/25 04/13/25 Range/Units 11:25 11:26 WBC 13.2 H (4.5-10.0) K/mm3 RBC 1.81 L (4.6-6.20) M/mm3 Hgb 5.4 L* (14.0-18.0) g/dL Hct 16.8 L* (42.0-52.0) % MCV 92.8 (80-100) fl MCH 29.8 (26-34) pg MCHC 32.1 (32-36) g/dl RDW 14.3 (11.5-14.5) % Plt Count 386 H (150-375) k/mm3 MPV 7.9 (7.4-10.4) fl Immature Gran % (Auto) 1.4 H (0-0.5) % Neut % (Auto) 83.1 H (45.5-73.1) % Lymph % (Auto) 6.7 L (18.3-44.2) % [place] % (Auto) 8.3 (2.6-8.5) % Eos % (Auto) 0.1 (0-4.4) % Baso % (Auto) 0.4 (0.2-1.2) % Lymph # (Auto) 0.89 L (0.9-3.2) K/mm3 [place] # (Auto) 1.1 H (0.1-0.6) K/mm3 Eos # (Auto) 0.0 (0-0.3) K/mm3 Baso # (Auto) 0.1 (0.0-0.1) K/mm3 Abs Immat Gran (auto) 0.18 H (0.00-0.031) K/mm3 Absolute Neuts (auto) 11.0 H (1.3-6.7) K/mm3 Absolute Nucleated RBC 0.000 (0.0-0.012) K/mm3 Nucleated RBC % 0.0 (0.0-0.2) % PT 13.5 (11.1-14.7) Seconds INR 1.0 APTT 32.5 (22.3-36.8) Seconds Sodium 126 L (137-145) mmol/L Potassium 3.4 (3.4-5.0) mmol/L Chloride 92 L (98-107) mmol/L Carbon Dioxide 28 (22-30) mmol/L Anion Gap 6 (4-12) mmol/L BUN 21 H (9-20) mg/dL Creatinine 0.57 L (0.7-1.3) mg/dL Estim Creat Clear Calc 87 ml/min Estimated GFR > 60 (59 - ) Glucose 111 H (65-110) mg/dL Calcium 8.2 L (8.4-10.2) mg/dL Total Bilirubin 0.1 L (0.2-1.3) mg/dL AST 28 (17-59) U/L ALT 16 (6-50) U/L Alkaline Phosphatase 54 (38-126) U/L Total Protein 6.0 L (6.3-8.2) g/dL Albumin 3.1 L (3.5-5.1) g/dL Lipase 132 (23-300) U/L Blood Type A Negative Antibody Screen Negative Crossmatch See Detail Imaging Data Radiologist's impression: Impressions Abdomen/Pelvis CT 04/13/25 13:04 IMPRESSION: 1. Findings suggestive peptic ulcer disease with 4.5 x 4.1 cm gastric ulcer along the lesser curvature of the stomach but without abscess or free intraperineal gas or fluid to suggest a full-thickness perforation. Activity in the extent posterior to the pancreas which appears normal but would consider correlation with lipase levels to exclude acute interstitial pancreatitis although suspicion is low. 2. Large fat-containing hiatal hernia. Discharge Plan Discharge Clinical Impression: Melena, Acute upper GI bleed Patient Disposition: Still a Patient Condition: Serious
[2025-04-13] MEDS: SODIUM CHLORIDE 0.9% IV 250 ML 30 ML IV CONT (12:39)
[2025-04-13] MEDS: FAMOTIDINE 20 MG/2 ML VIAL IV PUSH (12:39)
[2025-04-13] MEDS: PANTOPRAZOLE SODIUM IV 40 MG VIAL IV PUSH ×2 (12:39→20:52)
[2025-04-13] MEDS: TUBING, BLOOD SET 1 EACH XX (12:40)
--- NOTE | 2025-04-13 14:00 | PC.NURSE ---
Blood consent signed by pt with friend at bedside and WANDA,RN
--- NOTE | 2025-04-13 14:23 | P.HP_ITS ---
H&P: HPI History of Present Illness Date/Time: 04/13/25 14:23 Chief Complaint: Black tardy stools Narrative: 74-year-old male history of ETOH use presents the hospital with black tarry stools. Patient states that he has been sober for the last week and half. Of note patient was seen in the emergency room on 04/06/2025 due to black tarry stools and decided to leave AMA before lab work ordered back is hemoglobin was 6.6 at that time. Patient states that he a black tar stools whole time he was at home. He was starting to feel weak so he came into the hospital. He denies vomiting. He states that he has barely been able to eat or drink due to not feeling well. Lab work in the ED shows leukocytosis at 13.2 anemia of 5.4, PTT, INR and PT are within normal range, sodium is 126, chloride 92, BUN 21, creatinine 0.57,, calcium 8.2, albumin 3.1. CT abdomen pelvis show Findings suggestive peptic ulcer disease with 4.5 x 4.1 cm gastric ulcer along the lesser curvature of the stomach but without abscess or free intraperineal gas or fluid to suggest a full-thickness perforation. And activity in the extent posterior to the pancreas which appears normal but would consider correlation with lipase levels to exclude acute interstitial pancreatitis although suspicion is low. Review of Systems Review of Systems: 12 systems were reviewed and are negativ e except for as per HPI. [facility] Family History Family History (Updated 04/13/25 @ 14:51 by India Junior RN) Father Alcohol abuse Social History Social History Smoking packs per day: 1.5 Smoking cigarettes per day: 30.0 Smoking status: Current every day smoker Tobacco type: cigarettes Second hand tobacco smoke exposure: Yes Alcohol intake: current Drinks per week: 25 Substance use: current Substance use type: marijuana Last use: 03/28/25 Do You Feel Safe in your Home?: Yes Lack of Transportation: No Lack of Food: Never True Current Housing: I Have Housing Concerned About Future Housing: No Difficulty Paying Gas/Electric Bills: No Difficulty Paying for Meds: No Currently Unemployed: No Education: Trade/Vocational Certificate Difficulty w/ Childcare or Family Care: No Spiritual care concerns: No Meds Home Medications and Allergies Home Medications ?Medication ?Instructions ?Recorded ?Confirmed ?Type No Home Medications 04/06/25 04/13/25 History Allergies Allergy/AdvReac Type Severity Reaction Status Date / Time No Known Allergies Allergy Verified 04/13/25 15:19 Vital Signs Vital Signs - 24 hr 04/13/25 11:10 04/13/25 11:12 04/13/25 11:17 Temperature 97.9 F 98.0 F Pulse Rate 107 H 109 H 104 H Respiratory Rate 17 14 14 Blood Pressure 146/58 H 146/58 H 128/69 Pulse Oximetry 91 100 Oxygen Delivery Room Air 04/13/25 11:31 04/13/25 11:46 04/13/25 12:01 Temperature 97.9 F Pulse Rate 104 H 99 95 Respiratory Rate 18 18 18 Blood Pressure 110/64 123/62 111/62 Pulse Oximetry 100 100 100 Oxygen Delivery 04/13/25 12:16 04/13/25 12:31 04/13/25 12:46 Temperature Pulse Rate 98 100 97 Respiratory Rate 14 16 15 Blood Pressure 119/65 125/68 123/66 Pulse Oximetry 99 100 100 Oxygen Delivery 04/13/25 14:00 04/13/25 14:00 Temperature 98.6 F 98.6 F Pulse Rate 107 H 103 H Respiratory Rate 16 16 Blood Pressure 107/96 H 107/96 H Pulse Oximetry 99 100 Oxygen Delivery Exam Narrative: General: Chronically ill HEENT: normocephalic, atraumatic. Mucous membranes moist. EOMI, PERRLA, bilateral sclera anicteric, no conjunctival injection. Neck supple without JVD, lymphadenopathy, or bruit. Respiratory: clear to ascultation bilaterally. No rales/rhonic/wheezes. Cardiovascular: Regular rate and rhythm, normal S1-S2 upon ascultation. No murmurs, rubs, or clicks. PMI is nondisplaced, capillary refill less than 3 second. Abdomen: Soft, round, no pulsatile masses, nondistended and nontender. No rebound, no guarding. No CVA tenderness, no hepatosplenomegaly. Bowel sounds present to all four quadrants. No high pitch or tinkling sounds, resonant to percussion. Extremities: No cyanosis, clubbing, or edema present. Pulses are palpable 2/2. Active ROM to all four extremities. Neuro: Alert and orientated x 4. PERRLA. Cranial nerves 2-12 intact without foc al deficit. Skin: Warm, dry, and intact, without rash, erythema, or lesion. Psych: pleasant, cooperative, normal speech, normal affect, no hallucinations, no dysarthia H&P: Results Labs Labs: Short CBC 04/13/25 Range/Units 11:26 WBC 13.2 H (4.5-10.0) K/mm3 Hgb 5.4 L* (14.0-18.0) g/dL Hct 16.8 L* (42.0-52.0) % Plt Count 386 H (150-375) k/mm3 BMP 04/13/25 11:26 Sodium 126 L Potassium 3.4 Chloride 92 L Carbon Dioxide 28 BUN 21 H Creatinine 0.57 L Glucose 111 H Calcium 8.2 L Liver Function 04/13/25 Range/Units 11:26 Total Bilirubin 0.1 L (0.2-1.3) mg/dL AST 28 (17-59) U/L ALT 16 (6-50) U/L Alkaline Phosphatase 54 (38-126) U/L Albumin 3.1 L (3.5-5.1) g/dL Assessment and Plan Assessment and plan (1) Acute upper GI bleed: Code(s): K92.2 - Gastrointestinal hemorrhage, unspecified Status: Acute Assessment and Plan: GI consulted plan for scope tomorrow NPO midnight (2) Acute blood loss anemia: Code(s): D62 - Acute posthemorrhagic anemia Status: Acute Assessment and Plan: Hemoglobin on admission is 5.6 Transfuse 2 units RBCs Q.6 hour H&H Transfuse for hemoglobin less than 7 or symptomatic (3) Gastric ulcer: Code(s): K25.9 - Gastric ulcer, unspecified as acute or chronic, without hemorrhage or perforation Status: Acute Assessment and Plan: Likely cause of GI bleed Protonix and Pepcid (4) ETOH abuse: Code(s): F10.10 - Alcohol abuse, uncomplicated Status: Acute Assessment and Plan: Monitor for withdrawals Banana bag and thiamine Patient states that he withdrawals at home, and has been symptom free for the past several days (5) Hyponatremia: Code(s): E87.1 - Hypo-osmolality and hyponatremia Status: Inactive Assessment and Plan: IV hydration Repeat BMP in the morning (6) Leukocytosis: Qualifiers: Leukocytosis type: unspecified Qualified Code(s): D72.829 - Elevated white blood cell count, unspecified Code(s): D72.829 - Elevated white blood cell count, unspecified Status: Inactive Assessment and Plan: Could be reactive No acute infective process seen on CT Quality VTE Prophylaxis VTE prophylaxis: mechanical ordered If No VTE Prophylaxis Answer both mechanical and pharmacologic: Reason no pharmacologic proph: medical contraindication active bleeding/bleeding risk Patient states he does not take any home med Hospitalist MIPS Advance Care Plan I have confirmed that the patient's Advanced Care Plan is present, code status is documented, or surrogate decision maker is listed in patient medical record.: Yes Medication Reconciliation I have utilized all available resources to obtain, update and review the patients current medications (includes all prescriptions, OTC, herbals, cannabis, and nutritional supplements).: Yes
[2025-04-13 14:36] LABS: Lipase 132 U/L (23-300)
--- NOTE | 2025-04-13 15:00 | ADMGEN ---
This patient, Elvis Sandhu Jr., was admitted to IMU Room 205-01. Patient/family oriented to hospital policies and general routines including ID bracelet, bed and alarms, visiting hours, pain management, procedures, bathroom and other care routines, personal items, smoking policy, room service/diet, and visiting hours. Belongings in cabinet, pt has cell phone and sleep lab technologist, clothing, shoes, hat Information on how to activate the Rapid Response Team has been discussed. Patient/Family are encouraged to report perceived risks to care and to ask questions if they do not understand what they are told or what they should do.
--- NOTE | 2025-04-13 16:17 | P.PNGI_ITS ---
Subjective Date/time seen: 04/13/25 16:17 Interval history: Melena-anemia Objective Data Vital Signs Vital Signs: Vital Signs - 24 hr 04/13/25 11:10 04/13/25 11:12 04/13/25 11:17 Temperature 97.9 F 98.0 F Pulse Rate 107 H 109 H 104 H Respiratory Rate 17 14 14 Blood Pressure 146/58 H 146/58 H 128/69 Pulse Oximetry 91 100 Oxygen Delivery Room Air 04/13/25 11:31 04/13/25 11:46 04/13/25 12:01 Temperature 97.9 F Pulse Rate 104 H 99 95 Respiratory Rate 18 18 18 Blood Pressure 110/64 123/62 111/62 Pulse Oximetry 100 100 100 Oxygen Delivery 04/13/25 12:16 04/13/25 12:31 04/13/25 12:46 Temperature Pulse Rate 98 100 97 Respiratory Rate 14 16 15 Blood Pressure 119/65 125/68 123/66 Pulse Oximetry 99 100 100 Oxygen Delivery 04/13/25 14:00 04/13/25 14:00 04/13/25 14:20 Temperature 98.6 F 98.6 F 98.7 F Pulse Rate 107 H 103 H 102 H Respiratory Rate 16 16 16 Blood Pressure 107/96 H 107/96 H 106/68 Pulse Oximetry 99 100 100 Oxygen Delivery 04/13/25 14:51 04/13/25 15:51 04/13/25 16:10 Temperature 98.9 F 98.7 F 99.8 F H Pulse Rate 99 98 98 Respiratory Rate 22 H 16 16 Blood Pressure 111/63 118/57 L 113/60 Pulse Oximetry 100 100 100 Oxygen Delivery Intake/Output Intake/Output: Intake & Output 04/10/25 04/11/25 04/12/25 04/13/25 23:59 23:59 23:59 23:59 Intake Total 252 Balance 252 Meds/Results Medications: Active Medications Generic Name Dose Route Start Last Admin Trade Name Freq PRN Reason Stop Dose Admin Sodium Chloride 250 mls @ 30 mls/hr 04/13/25 11:58 04/13/25 12:39 Normal Saline Iv IV CONT 04/13/25 20:17 30 mls/hr .Q8H20M STA Administration Sodium Chloride 1,000 mls @ 125 mls/hr 04/14/25 00:00 Normal Saline Iv IV CONT .Q8H UZMA Thiamine HCl 100 mg/ Folic 1,013.2 mls @ 125 mls/hr 04/13/25 15:30 Acid 1 mg/ Magnesium Sulfate 1 IV CONT 04/13/25 23:36 gm/ Multivitamins 5 ml/ .Q8H7M ONE Multivitamins 5 ml/ Sodium Chloride Lorazepam 2 mg 04/13/25 14:51 Lorazepam Inj (*Crx) 2 Mg/Ml Vial IV PUSH Q4H PRN CIWA 8-15 Pantoprazole Sodium 40 mg 04/13/25 21:00 Pantoprazole Sodium Iv 40 Mg Vial IV PUSH Q12HR [facility] Radiology Results: ITS Impressions Abdomen/Pelvis CT 04/13/25 13:04 IMPRESSION: 1. Findings suggestive peptic ulcer disease with 4.5 x 4.1 cm gastric ulcer along the lesser curvature of the stomach but without abscess or free intraperineal gas or fluid to suggest a full-thickness perforation. Activity in the extent posterior to the pancreas which appears normal but would consider correlation with lipase levels to exclude acute interstitial pancreatitis although suspicion is low. 2. Large fat-containing hiatal hernia. Labs Labs: Laboratory Results - last 24 hr 04/13/25 04/13/25 11:25 11:26 WBC 13.2 H RBC 1.81 L Hgb 5.4 L* Hct 16.8 L* MCV 92.8 MCH 29.8 MCHC 32.1 RDW 14.3 Plt Count 386 H MPV 7.9 Immature Gran % (Auto) 1.4 H Neut % (Auto) 83.1 H Lymph % (Auto) 6.7 L [place] % (Auto) 8.3 Eos % (Auto) 0.1 Baso % (Auto) 0.4 Lymph # (Auto) 0.89 L [place] # (Auto) 1.1 H Eos # (Auto) 0.0 Baso # (Auto) 0.1 Abs Immat Gran (auto) 0.18 H Absolute Neuts (auto) 11.0 H Absolute Nucleated RBC 0.000 Nucleated RBC % 0.0 PT 13.5 INR 1.0 APTT 32.5 Sodium 126 L Potassium 3.4 Chloride 92 L Carbon Dioxide 28 Anion Gap 6 BUN 21 H Creatinine 0.57 L Estim Creat Clear Calc 87 Estimated GFR > 60 Glucose 111 H Calcium 8.2 L Total Bilirubin 0.1 L AST 28 ALT 16 Alkaline Phosphatase 54 Total Protein 6.0 L Albumin 3.1 L Lipase 132 Blood Type A Negative Antibody Screen Negative Crossmatch See Detail
--- NOTE | 2025-04-13 16:18 | P.CONGI_ITS ---
Assessment and Plan Assessment and plan (1) Acute upper GI bleed: Code(s): K92.2 - Gastrointestinal hemorrhage, unspecified Status: Acute Assessment and Plan: The patient has a significant history of chronic alcohol abuse and NSAID use. While he is currently experiencing active, though hemodynamically stable, gastrointestinal bleeding, we will initiate pantoprazole 40 mg IV twice daily and schedule an EGD for tomorrow. The differential diagnosis includes: 1) portal hypertension-related bleeding (although normal platelet count and INR make this less likely, significant portal hypertension cannot be entirely excluded), and 2) peptic ulcer disease, suggested by CT scan findings. GI Consult Note Consult date/time: 04/13/25 16:18 Reason for consult: melena-anemia HPI: A 74-year-old male, Elvis Sandhu , presents to the emergency department today for evaluation of a GI bleed. The patient reports a 30-year history of consuming at least one six-pack of beer daily, with abstinence for the past 1.5 weeks. Approximately two weeks ago, he began noticing black, tarry stools. Last week, he presented to [facility] and was awaiting transfer to [facility] but signed out against medical advice . His hemoglobin has significantly decreased from 9.3 on April 03 to 5.4 today. He continues to report black, tarry stools. Of note, he takes Ibuprofen at least 3 times a week. Review of Systems 2 Review of Systems: All systems reviewed & are unremarkable except as noted in HPI and below PMFSH Family History Family History (Updated 04/13/25 @ 14:51 by India Junior RN) Father Alcohol abuse Social History Social History Smoking packs per day: 1.5 Smoking cigarettes per day: 30.0 Smoking status: Current every day smoker Tobacco type: cigarettes Second hand tobacco smoke exposure: Yes Alcohol intake: current Drinks per week: 25 Substance use: current Substance use type: marijuana Last use: 03/28/25 Do You Feel Safe in your Home?: Yes Lack of Transportation: No Lack of Food: Never True Current Housing: I Have Housing Concerned About Future Housing: No Difficulty Paying Gas/Electric Bills: No Difficulty Paying for Meds: No Currently Unemployed: No Education: Trade/Vocational Certificate Difficulty w/ Childcare or Family Care: No Spiritual care concerns: No Meds Home Medications and Allergies Home Medications ?Medication ?Instructions ?Recorded ?Confirmed ?Type No Home Medications 04/06/25 04/13/25 History Allergies Allergy/AdvReac Type Severity Reaction Status Date / Time No Known Allergies Allergy Verified 04/13/25 15:19 Vital Signs Vital Signs - 24 hr 04/13/25 11:10 04/13/25 11:12 04/13/25 11:17 Temperature 97.9 F 98.0 F Pulse Rate 107 H 109 H 104 H Respiratory Rate 17 14 14 Blood Pressure 146/58 H 146/58 H 128/69 Pulse Oximetry 91 100 Oxygen Delivery Room Air 04/13/25 11:31 04/13/25 11:46 04/13/25 12:01 Temperature 97.9 F Pulse Rate 104 H 99 95 Respiratory Rate 18 18 18 Blood Pressure 110/64 123/62 111/62 Pulse Oximetry 100 100 100 Oxygen Delivery 04/13/25 12:16 04/13/25 12:31 04/13/25 12:46 Temperature Pulse Rate 98 100 97 Respiratory Rate 14 16 15 Blood Pressure 119/65 125/68 123/66 Pulse Oximetry 99 100 100 Oxygen Delivery 04/13/25 14:00 04/13/25 14:00 04/13/25 14:20 Temperature 98.6 F 98.6 F 98.7 F Pulse Rate 107 H 103 H 102 H Respiratory Rate 16 16 16 Blood Pressure 107/96 H 107/96 H 106/68 Pulse Oximetry 99 100 100 Oxygen Delivery 04/13/25 14:51 04/13/25 15:51 04/13/25 16:10 Temperature 98.9 F 98.7 F 99.8 F H Pulse Rate 99 98 98 Respiratory Rate 22 H 16 16 Blood Pressure 111/63 118/57 L 113/60 Pulse Oximetry 100 100 100 Oxygen Delivery Exam 2 Const: General: cooperative and healthy appearing Resp: Effort & Inspection: normal respiratory effort and able to speak in complete sentences Auscultation: clear to auscultation bilaterally Cardio: Rate: regular rate Rhythm: regular rhythm GI: Inspection: normal to inspection GI Palp: No No hepatosplenomegaly present Auscultation: normal bowel sounds Other: Scant amout of stools in rectal vault, (+) melena Skin: General skin exam: normal color Psych: Appearance: grossly normal Mental Status: mental status grossly normal Results Labs 04/13/25 11:26 04/13/25 11:26 Labs: Short CBC 04/13/25 Range/Units 11:26 WBC 13.2 H (4.5-10.0) K/mm3 Hgb 5.4 L* (14.0-18.0) g/dL Hct 16.8 L* (42.0-52.0) % Plt Count 386 H (150-375) k/mm3 BMP 04/13/25 11:26 Sodium 126 L Potassium 3.4 Chloride 92 L Carbon Dioxide 28 BUN 21 H Creatinine 0.57 L Glucose 111 H Calcium 8.2 L Liver Function 04/13/25 Range/Units 11:26 Total Bilirubin 0.1 L (0.2-1.3) mg/dL AST 28 (17-59) U/L ALT 16 (6-50) U/L Alkaline Phosphatase 54 (38-126) U/L Albumin 3.1 L (3.5-5.1) g/dL
[2025-04-13] MEDS: THIAMINE HCL INJ 100 MG, FOLIC ACID INJ 1 MG, MAGNESIUM SULFATE INJ 1 GM, MULTIVITAMINS... 125 MG IV CONT (17:58)
[2025-04-13 18:31] LABS: Hematocrit 21.5 % (42.0-52.0)
[2025-04-13 18:38] LABS: Hemoglobin 6.9 g/dL (14.0-18.0)
[2025-04-13 18:50] LABS: Alanine Aminotransferase 15 U/L (6-50); Albumin Level 2.9 g/dL (3.5-5.1); Alkaline Phosphatase 52 U/L (38-126); Anion Gap 4 mmol/L (4-12); Aspartate Amino Transferase 22 U/L (17-59); Bilirubin,Total 0.6 mg/dL (0.2-1.3); Blood Urea Nitrogen 15 mg/dL (9-20); Calcium 7.8 mg/dL (8.4-10.2); Carbon Dioxide 26 mmol/L (22-30); Chloride 95 mmol/L (98-107); Estimated CRCL calculation 102 ml/min; Estimated Glomerular Filt Rate > 60; Glucose 85 mg/dL (65-110); Potassium 3.4 mmol/L (3.4-5.0); Sodium 125 mmol/L (137-145)
[2025-04-13 18:56] LABS: Glucose Point of Care 87 mg/dl (65-105)
[2025-04-13] MEDS: MELATONIN 5 MG TABLET PO (20:52)
[2025-04-13 23:48] LABS: Glucose Point of Care 90 mg/dl (65-105)
[2025-04-14] VITALS (26 sets, daily range): BP systolic 101–142; BP diastolic 47–72; PULSE 72–93; RESP 12–22; TEMP 36.1–38; O2SAT 95–99
[2025-04-14 00:45] LABS: Hematocrit 19.2 % (42.0-52.0); Hemoglobin 6.5 g/dL (14.0-18.0)
[2025-04-14] MEDS: SODIUM CHLORIDE 0.9% IV 250 ML 30 ML IV CONT (03:54)
[2025-04-14] MEDS: TUBING, BLOOD PLUM PUMP TUBING 1 EACH XX (08:45)
[2025-04-14] MEDS: PANTOPRAZOLE SODIUM IV 40 MG VIAL IV PUSH ×2 (08:46→20:18)
[2025-04-14] MEDS: SODIUM CHLORIDE 0.9% IV 250 ML 30 ML (08:46)
--- NOTE | 2025-04-14 10:17 | P.PNIM_ITS ---
Progress Note: A&P Assessment and Plan (1) Acute upper GI bleed: Code(s): K92.2 - Gastrointestinal hemorrhage, unspecified Status: Acute Assessment and Plan: GI consulted plan for scope tomorrow NPO midnight L (2) Acute blood loss anemia: Code(s): D62 - Acute posthemorrhagic anemia Status: Acute Assessment and Plan: Hemoglobin on admission is 5.6 Transfuse 2 units RBCs Q.6 hour H&H Transfuse for hemoglobin less than 7 or symptomatic (3) Gastric ulcer: Code(s): K25.9 - Gastric ulcer, unspecified as acute or chronic, without hemorrhage or perforation Status: Acute Assessment and Plan: Likely cause of GI bleed Protonix and Pepcid (4) ETOH abuse: Code(s): F10.10 - Alcohol abuse, uncomplicated Status: Acute Assessment and Plan: Monitor for withdrawals Banana bag and thiamine Patient states that he withdrawals at home, and has been symptom free for the past several days (5) Hyponatremia: Code(s): E87.1 - Hypo-osmolality and hyponatremia Status: Inactive Assessment and Plan: IV hydration Repeat BMP in the morning (6) Leukocytosis: Qualifiers: Leukocytosis type: unspecified Qualified Code(s): D72.829 - Elevated white blood cell count, unspecified Code(s): D72.829 - Elevated white blood cell count, unspecified Status: Inactive Assessment and Plan: Could be reactive No acute infective process seen on CT Subjective Date/time seen: 04/14/25 10:17 Interval history: Evaluated at bedside.EGD this afternoon. Chronic alcohol . Drinks beers everyday . Review of Systems Review of Systems: 12 systems were reviewed and are negativ e except for as per HPI. Exam Narrative: General: Chronically ill HEENT: normocephalic, atraumatic. Mucous membranes moist. EOMI, PERRLA, bilateral sclera anicteric, no conjunctival injection. Neck supple without JVD, lymphadenopathy, or bruit. Respiratory: clear to ascultation bilaterally. No rales/rhonic/wheezes. Cardiovascular: Regular rate and rhythm, normal S1-S2 upon ascultation. No murmurs, rubs, or clicks. PMI is nondisplaced, capillary refill less than 3 second. Abdomen: Soft, round, no pulsatile masses, nondistended and nontender. No rebound, no guarding. No CVA tenderness, no hepatosplenomegaly. Bowel sounds present to all four quadrants. No high pitch or tinkling sounds, resonant to percussion. Extremities: No cyanosis, clubbing, or edema present. Pulses are palpable 2/2. Active ROM to all four extremities. Neuro: Alert and orientated x 4. PERRLA. Cranial nerves 2-12 intact without focal deficit. Skin: Warm, dry, and intact, without rash, erythema, or lesion. Psych: pleasant, cooperative, normal speech, normal affect, no hallucinations, no dysarthia Objective Data Vital Signs Vital Signs: Vital Signs - 24 hr 04/13/25 11:10 04/13/25 11:12 04/13/25 11:17 Temperature 97.9 F 98.0 F Pulse Rate 107 H 109 H 104 H Pulse Rate [Bilateral Radial] Respiratory Rate 17 14 14 Blood Pressure 146/58 H 146/58 H 128/69 Pulse Oximetry 91 100 Oxygen Delivery Room Air Fraction of Inspired Oxygen 04/13/25 11:31 04/13/25 11:46 04/13/25 12:01 Temperature 97.9 F Pulse Rate 104 H 99 95 Pulse Rate [Bilateral Radial] Respiratory Rate 18 18 18 Blood Pressure 110/64 123/62 111/62 Pulse Oximetry 100 100 100 Oxygen Delivery Fraction of Inspired Oxygen 04/13/25 12:16 04/13/25 12:31 04/13/25 12:46 Temperature Pulse Rate 98 100 97 Pulse Rate [Bilateral Radial] Respiratory Rate 14 16 15 Blood Pressure 119/65 125/68 123/66 Pulse Oximetry 99 100 100 Oxygen Delivery Fraction of Inspired Oxygen 04/13/25 14:00 04/13/25 14:00 04/13/25 14:20 Temperature 98.6 F 98.6 F 98.7 F Pulse Rate 107 H 103 H 102 H Pulse Rate [Bilateral Radial] Respiratory Rate 16 16 16 Blood Pressure 107/96 H 107/96 H 106/68 Pulse Oximetry 99 100 100 Oxygen Delivery Fraction of Inspired Oxygen 04/13/25 14:51 04/13/25 15:51 04/13/25 16:00 Temperature 98.9 F 98.7 F 98.4 F Pulse Rate 99 98 76 Pulse Rate [Bilateral Radial] Respiratory Rate 22 H 16 18 Blood Pressure 111/63 118/57 L 114/91 H Pulse Oximetry 100 100 Oxygen Delivery Fraction of Inspired Oxygen 04/13/25 16:00 04/13/25 16:00 04/13/25 16:10 Temperature 99.2 F 99.8 F H Pulse Rate 98 98 98 Pulse Rate [Bilateral Radial] Respiratory Rate 18 16 Blood Pressure 103/62 113/60 Pulse Oximetry 100 100 Oxygen Delivery Fraction of Inspired Oxygen 04/13/25 18:00 04/13/25 18:27 04/13/25 19:53 Temperature 99 F 99.3 F Pulse Rate 97 97 96 Pulse Rate [Bilateral Radial] Respiratory Rate 18 18 Blood Pressure 117/59 L 110/51 L Pulse Oximetry 100 97 Oxygen Delivery Fraction of Inspired Oxygen 04/13/25 20:00 04/13/25 20:00 04/13/25 20:00 Temperature Pulse Rate 98 98 Pulse Rate [Bilateral Radial] 96 Respiratory Rate 18 Blood Pressure 110/51 L Pulse Oximetry 98 Oxygen Delivery Room Air Fraction of Inspired Oxygen 21 04/13/25 20:54 04/13/25 22:00 04/13/25 23:38 Temperature Pulse Rate 84 Pulse Rate [Bilateral Radial] 89 Respiratory Rate Blood Pressure 110/51 L Pulse Oximetry 98 Oxygen Delivery Room Air Fraction of Inspired Oxygen 21 04/13/25 23:38 04/13/25 23:38 04/13/25 23:54 Temperature 97.8 F Pulse Rate 88 88 88 Pulse Rate [Bilateral Radial] Respiratory Rate 18 18 Blood Pressure 107/70 Pulse Oximetry 98 100 Oxygen Delivery Room Air Fraction of Inspired Oxygen 21 04/14/25 02:00 04/14/25 03:51 04/14/25 04:00 Temperature 98.5 F Pulse Rate 84 88 Pulse Rate [Bilateral Radial] 88 Respiratory Rate 20 Blood Pressure 121/57 L 121/57 L Pulse Oximetry 95 Oxygen Delivery Fraction of Inspired Oxygen 04/14/25 04:00 04/14/25 04:00 04/14/25 04:00 Temperature 98.2 F Pulse Rate 88 88 88 Pulse Rate [Bilateral Radial] Respiratory Rate 20 20 Blood Pressure 121/57 L Pulse Oximetry 95 95 Oxygen Delivery Room Air Fraction of Inspired Oxygen 21 04/14/25 04:03 04/14/25 04:19 04/14/25 05:19 Temperature 98.2 F 98.2 F 98.2 F Pulse Rate 88 82 85 Pulse Rate [Bilateral Radial] Respiratory Rate 20 20 20 Blood Pressure 121/57 L 114/61 111/50 L Pulse Oximetry 95 96 96 Oxygen Delivery Fraction of Inspired Oxygen 04/14/25 05:19 04/14/25 06:00 04/14/25 06:19 Temperature 98.2 F 98.5 F Pulse Rate 85 88 93 Pulse Rate [Bilateral Radial] Respiratory Rate 20 20 Blood Pressure 111/50 L 132/72 Pulse Oximetry 96 96 Oxygen Delivery Fraction of Inspired Oxygen 04/14/25 08:00 04/14/25 08:00 04/14/25 08:00 Temperature 98.3 F Pulse Rate 83 Pulse Rate [Bilateral Radial] 83 Respiratory Rate 20 Blood Pressure 125/63 Pulse Oximetry 95 95 Oxygen Delivery Room Air Fraction of Inspired Oxygen 04/14/25 08:54 04/14/25 09:11 Temperature 98.3 F 98.6 F Pulse Rate 83 87 Pulse Rate [Bilateral Radial] Respiratory Rate 20 12 Blood Pressure 125/63 112/57 L Pulse Oximetry 95 97 Oxygen Delivery Fraction of Inspired Oxygen Intake/Output Intake/Output: Intake & Output 04/11/25 04/12/25 04/13/25 04/14/25 23:59 23:59 23:59 23:59 Intake Total 1342 850 Output Total 1100 600 Balance 242 250 Meds/Results Medications: Active Medications Generic Name Dose Route Start Last Admin Trade Name Freq PRN Reason Stop Dose Admin Sodium Chloride 1,000 mls @ 125 mls/hr 04/14/25 00:00 Normal Saline Iv IV CONT .Q8H UZMA Lorazepam 2 mg 04/13/25 14:51 Lorazepam Inj (*Crx) 2 Mg/Ml Vial IV PUSH Q4H PRN CIWA 8-15 Melatonin 5 mg 04/13/25 21:00 04/13/25 20:52 Melatonin 5 Mg Tablet PO 5 mg HS UZMA Administration Pantoprazole Sodium 40 mg 04/13/25 21:00 04/14/25 08:46 Pantoprazole Sodium Iv 40 Mg Vial IV PUSH 40 mg Q12HR UZMA Administration Radiology Results: ITS Impressions Abdomen/Pelvis CT 04/13/25 13:04 IMPRESSION: 1. Findings suggestive peptic ulcer disease with 4.5 x 4.1 cm gastric ulcer along the lesser curvature of the stomach but without abscess or free intraperineal gas or fluid to suggest a full-thickness perforation. Activity in the extent posterior to the pancreas which appears normal but would consider correlation with lipase levels to exclude acute interstitial pancreatitis although suspicion is low. 2. Large fat-containing hiatal hernia. Labs Labs: Laboratory Results - last 24 hr 04/13/25 04/13/25 04/13/25 11:25 11:26 18:23 WBC 13.2 H RBC 1.81 L Hgb 5.4 L* 6.9 L* Hct 16.8 L* 21.5 L MCV 92.8 MCH 29.8 MCHC 32.1 RDW 14.3 Plt Count 386 H MPV 7.9 Immature Gran % (Auto) 1.4 H Neut % (Auto) 83.1 H Lymph % (Auto) 6.7 L [place] % (Auto) 8.3 Eos % (Auto) 0.1 Baso % (Auto) 0.4 Lymph # (Auto) 0.89 L [place] # (Auto) 1.1 H Eos # (Auto) 0.0 Baso # (Auto) 0.1 Abs Immat Gran (auto) 0.18 H Absolute Neuts (auto) 11.0 H Absolute Nucleated RBC 0.000 Nucleated RBC % 0.0 PT 13.5 INR 1.0 APTT 32.5 Sodium 126 L 125 L Potassium 3.4 3.4 Chloride 92 L 95 L Carbon Dioxide 28 26 Anion Gap 6 4 BUN 21 H 15 D Creatinine 0.57 L 0.48 L Estim Creat Clear Calc 87 102 Estimated GFR > 60 > 60 Glucose 111 H 85 POC Capillary Glucose Calcium 8.2 L 7.8 L Total Bilirubin 0.1 L 0.6 AST 28 22 ALT 16 15 Alkaline Phosphatase 54 52 Total Protein 6.0 L 6.0 L Albumin 3.1 L 2.9 L Lipase 132 Blood Type A Negative Antibody Screen Negative Crossmatch See Detail 04/13/25 04/13/25 04/14/25 18:53 23:34 00:19 WBC RBC Hgb 6.5 L* Hct 19.2 L* MCV MCH MCHC RDW Plt Count MPV Immature Gran % (Auto) Neut % (Auto) Lymph % (Auto) [place] % (Auto) Eos % (Auto) Baso % (Auto) Lymph # (Auto) [place] # (Auto) Eos # (Auto) Baso # (Auto) Abs Immat Gran (auto) Absolute Neuts (auto) Absolute Nucleated RBC Nucleated RBC % PT INR APTT Sodium Potassium Chloride Carbon Dioxide Anion Gap BUN Creatinine Estim Creat Clear Calc Estimated GFR Glucose POC Capillary Glucose 87 90 Calcium Total Bilirubin AST ALT Alkaline Phosphatase Total Protein Albumin Lipase Blood Type Antibody Screen Crossmatch Quality VTE Prophylaxis VTE prophylaxis: mechanical ordered Hospitalist MIPS Advance Care Plan I have confirmed that the patient's Advanced Care Plan is present, code status is documented, or surrogate decision maker is listed in patient medical record.: Yes Medication Reconciliation I have utilized all available resources to obtain, update and review the patients current medications (includes all prescriptions, OTC, herbals, cannabis, and nutritional supplements).: Yes
--- NOTE | 2025-04-14 10:52 | PC.NURSE ---
To GI Lab per wheelchair, IV patent to left forearm. Report given to SAE Gibbons.
[2025-04-14] MEDS: LACTATED RINGERS 1,000 ML 150 ML IV CONT (11:21)
--- NOTE | 2025-04-14 11:23 | WPDANESEPPF ---
Anes - Initial Pre Proc Eval Procedure: Operation Date: 04/14/25 16:00 Proposed Procedures p Esophagogastroduodenoscopy - Alban Srinivasan MD Date/Time: 04/14/25 11:23 Surgeon: Jennifer Salas MD Pre Op Diagnosis: Upper GI bleed, anemia Patient Data Age: 74 Gender: M Height: 1.78 m Weight: 65.3 kg Last Vital Signs Temp 36.1 C L 04/14/25 11:00 Pulse 86 04/14/25 11:00 Resp 20 04/14/25 11:00 BP 142/63 H 04/14/25 11:00 Pulse Ox 97 04/14/25 11:00 O2 Del Method Room Air 04/14/25 08:00 FiO2 21 04/14/25 04:00 Allergies Allergy/AdvReac Type Severity Reaction Status Date / Time No Known Allergies Allergy Verified 04/14/25 11:14 Home Medications ?Medication ?Instructions ?Recorded ?Confirmed ?Type No Home Medications 04/06/25 04/13/25 History Laboratory Tests 04/13/25 04/13/25 04/13/25 11:25 11:26 18:23 WBC 13.2 H K/mm3 (4.5-10.0) RBC 1.81 L M/mm3 (4.6-6.20) Hgb 5.4 L* g/dL 6.9 L* g/dL (14.0-18.0) (14.0-18.0) Hct 16.8 L* % 21.5 L % (42.0-52.0) (42.0-52.0) MCV 92.8 fl (80-100) MCH 29.8 pg (26-34) MCHC 32.1 g/dl (32-36) RDW 14.3 % (11.5-14.5) Plt Count 386 H k/mm3 (150-375) MPV 7.9 fl (7.4-10.4) Immature Gran % (Auto) 1.4 H % (0-0.5) Neut % (Auto) 83.1 H % (45.5-73.1) Lymph % (Auto) 6.7 L % (18.3-44.2) [place] % (Auto) 8.3 % (2.6-8.5) Eos % (Auto) 0.1 % (0-4.4) Baso % (Auto) 0.4 % (0.2-1.2) Lymph # (Auto) 0.89 L K/mm3 (0.9-3.2) [place] # (Auto) 1.1 H K/mm3 (0.1-0.6) Eos # (Auto) 0.0 K/mm3 (0-0.3) Baso # (Auto) 0.1 K/mm3 (0.0-0.1) Abs Immat Gran (auto) 0.18 H K/mm3 (0.00-0.031) Absolute Neuts (auto) 11.0 H K/mm3 (1.3-6.7) Absolute Nucleated RBC 0.000 K/mm3 (0.0-0.012) Nucleated RBC % 0.0 % (0.0-0.2) PT 13.5 Seconds (11.1-14.7) INR 1.0 APTT 32.5 Seconds (22.3-36.8) Sodium 126 L mmol/L 125 L mmol/L (137-145) (137-145) Potassium 3.4 mmol/L 3.4 mmol/L (3.4-5.0) (3.4-5.0) Chloride 92 L mmol/L 95 L mmol/L (98-107) (98-107) Carbon Dioxide 28 mmol/L 26 mmol/L (22-30) (22-30) Anion Gap 6 mmol/L 4 mmol/L (4-12) (4-12) BUN 21 H mg/dL 15 D mg/dL (9-20) (9-20) Creatinine 0.57 L mg/dL 0.48 L mg/dL (0.7-1.3) (0.7-1.3) Estim Creat Clear Calc 87 ml/min 102 ml/min Estimated GFR > 60 > 60 (59 - ) (59 - ) Glucose 111 H mg/dL 85 mg/dL (65-110) (65-110) POC Capillary Glucose Calcium 8.2 L mg/dL 7.8 L mg/dL (8.4-10.2) (8.4-10.2) Total Bilirubin 0.1 L mg/dL 0.6 mg/dL (0.2-1.3) (0.2-1.3) AST 28 U/L 22 U/L (17-59) (17-59) ALT 16 U/L 15 U/L (6-50) (6-50) Alkaline Phosphatase 54 U/L 52 U/L (38-126) (38-126) Total Protein 6.0 L g/dL 6.0 L g/dL (6.3-8.2) (6.3-8.2) Albumin 3.1 L g/dL 2.9 L g/dL (3.5-5.1) (3.5-5.1) Lipase 132 U/L (23-300) Blood Type A Negative Antibody Screen Negative Crossmatch See Detail 04/13/25 04/13/25 04/14/25 18:53 23:34 00:19 WBC RBC Hgb 6.5 L* g/dL (14.0-18.0) Hct 19.2 L* % (42.0-52.0) MCV MCH MCHC RDW Plt Count MPV Immature Gran % (Auto) Neut % (Auto) Lymph % (Auto) [place] % (Auto) Eos % (Auto) Baso % (Auto) Lymph # (Auto) [place] # (Auto) Eos # (Auto) Baso # (Auto) Abs Immat Gran (auto) Absolute Neuts (auto) Absolute Nucleated RBC Nucleated RBC % PT INR APTT Sodium Potassium Chloride Carbon Dioxide Anion Gap BUN Creatinine Estim Creat Clear Calc Estimated GFR Glucose POC Capillary Glucose 87 mg/dl 90 mg/dl (65-105) (65-105) Calcium Total Bilirubin AST ALT Alkaline Phosphatase Total Protein Albumin Lipase Blood Type Antibody Screen Crossmatch Patient hx anesthesia problems: none Family hx anesthesia problems: none Results Review: All pre-operative results and documents have been reviewed as part of the pre-operative evaluation. [facility] Family History Family History Father Alcohol abuse Social History Social History Smoking packs per day: 1.5 Smoking cigarettes per day: 30.0 Smoking status: Current every day smoker Tobacco type: cigarettes Second hand tobacco smoke exposure: Yes Alcohol intake: current Drinks per week: 25 Substance use: current Substance use type: marijuana Last use: 03/28/25 Do You Feel Safe in your Home?: Yes Lack of Transportation: No Lack of Food: Never True Current Housing: I Have Housing Concerned About Future Housing: No Difficulty Paying Gas/Electric Bills: No Difficulty Paying for Meds: No Currently Unemployed: No Education: Trade/Vocational Certificate Difficulty w/ Childcare or Family Care: No Spiritual care concerns: No Anes - Eval Final PreProcedure Day of Procedure 04/14/25 11:23 Patient weight: normal Heart: regular rate and rhythm Lungs: decreased breath sounds Airway: Mallampati scale class 1 Neurological: alert and oriented Last oral intake: >/= 8 hours ASA classification: III Emergent: no Anesthetic plan: proceed Anesthesia type and monitoring: general GIVS and standard monitoring Results Review: All pre-operative results and documents have been reviewed as part of the pre-operative evaluation. Informed Consent: The patient's anesthetic plan and its attendant risks and benefits were discussed with the patient/family/POA. Questions were solicited and answers provided to the satisfaction of the patient/family/POA.
[2025-04-14 12:23] LABS: Basophils Absolute Auto 0.1 K/mm3 (0.0-0.1); Basophils Percent Auto 0.5 % (0.2-1.2); Eosinophils Absolute Auto 0.1 K/mm3 (0-0.3); Eosinophils Percent Auto 0.7 % (0-4.4); Hematocrit 27.8 % (42.0-52.0); Hemoglobin 9.1 g/dL (14.0-18.0); Immature Granulocyte Absolute 0.09 K/mm3 (0.00-0.031); Immature Granulocyte Percent A 0.8 % (0-0.5); Lymphocytes Absolute Auto 0.77 K/mm3 (0.9-3.2); Mean Corpuscular HGB Conc 32.7 g/dl (32-36); Mean Corpuscular Hemoglobin 28.8 pg (26-34); Mean Platelet Volume 8.1 fl (7.4-10.4); Monocytes Absolute Auto 0.8 K/mm3 (0.1-0.6); Monocytes Percent Auto 7.5 % (2.6-8.5); Neutrophils Absolute Auto 9.2 K/mm3 (1.3-6.7); Neutrophils Percent Auto 83.5 % (45.5-73.1); Platelet Count Result 309 k/mm3 (150-375); Red Blood Count 3.16 M/mm3 (4.6-6.20); Red Cell Distribution Width 16.4 % (11.5-14.5)
[2025-04-14 12:43] LABS: Glucose Point of Care 73 mg/dl (65-105)
[2025-04-14 12:53] LABS: HPYLORIRESULT Negative (Negative)
[2025-04-14] MEDS: POTASSIUM CHLORIDE INJ 40 MEQ in SODIUM CHLORIDE 0.9% IV 500 ML 130 MEQ IVPB (12:58)
[2025-04-14] MEDS: SODIUM CHLORIDE 0.9% IV 1,000 ML 125 ML IV CONT (12:59)
--- NOTE | 2025-04-14 16:17 | WPDGIPROGNO ---
Progress Note: A&P Assessment and Plan (1) Gastric ulcer: Code(s): K25.9 - Gastric ulcer, unspecified as acute or chronic, without hemorrhage or perforation Status: Acute Assessment and Plan: PLease see EGD report. Large gastric ulcer, some vessels were cauterized. Suggest observing the patient for 48 h with serial H/H and watching his stool output (residual melena is expected, but with a tendency to clear) and especially hemodynamic status. Continue IV pantoprazole and can advance diet to full liquids tonight. Subjective Date/time seen: 04/14/25 16:17 Objective Data Vital Signs Vital Signs: Vital Signs - 24 hr 04/13/25 18:00 04/13/25 18:27 04/13/25 19:53 Temperature 99 F 99.3 F Pulse Rate 97 97 96 Pulse Rate [Bilateral Radial] Respiratory Rate 18 18 Blood Pressure 117/59 L 110/51 L Pulse Oximetry 100 97 Oxygen Delivery Fraction of Inspired Oxygen 04/13/25 20:00 04/13/25 20:00 04/13/25 20:00 Temperature Pulse Rate 98 98 Pulse Rate [Bilateral Radial] 96 Respiratory Rate 18 Blood Pressure 110/51 L Pulse Oximetry 98 Oxygen Delivery Room Air Fraction of Inspired Oxygen 21 04/13/25 20:54 04/13/25 22:00 04/13/25 23:38 Temperature Pulse Rate 84 Pulse Rate [Bilateral Radial] 89 Respiratory Rate Blood Pressure 110/51 L Pulse Oximetry 98 Oxygen Delivery Room Air Fraction of Inspired Oxygen 21 04/13/25 23:38 04/13/25 23:38 04/13/25 23:54 Temperature 97.8 F Pulse Rate 88 88 88 Pulse Rate [Bilateral Radial] Respiratory Rate 18 18 Blood Pressure 107/70 Pulse Oximetry 98 100 Oxygen Delivery Room Air Fraction of Inspired Oxygen 21 04/14/25 02:00 04/14/25 03:51 04/14/25 04:00 Temperature 98.5 F Pulse Rate 84 88 Pulse Rate [Bilateral Radial] 88 Respiratory Rate 20 Blood Pressure 121/57 L 121/57 L Pulse Oximetry 95 Oxygen Delivery Fraction of Inspired Oxygen 04/14/25 04:00 04/14/25 04:00 04/14/25 04:00 Temperature 98.2 F Pulse Rate 88 88 88 Pulse Rate [Bilateral Radial] Respiratory Rate 20 20 Blood Pressure 121/57 L Pulse Oximetry 95 95 Oxygen Delivery Room Air Fraction of Inspired Oxygen 21 04/14/25 04:03 04/14/25 04:19 04/14/25 05:19 Temperature 98.2 F 98.2 F 98.2 F Pulse Rate 88 82 85 Pulse Rate [Bilateral Radial] Respiratory Rate 20 20 20 Blood Pressure 121/57 L 114/61 111/50 L Pulse Oximetry 95 96 96 Oxygen Delivery Fraction of Inspired Oxygen 04/14/25 05:19 04/14/25 06:00 04/14/25 06:19 Temperature 98.2 F 98.5 F Pulse Rate 85 88 93 Pulse Rate [Bilateral Radial] Respiratory Rate 20 20 Blood Pressure 111/50 L 132/72 Pulse Oximetry 96 96 Oxygen Delivery Fraction of Inspired Oxygen 04/14/25 08:00 04/14/25 08:00 04/14/25 08:00 Temperature 98.3 F Pulse Rate 83 Pulse Rate [Bilateral Radial] 83 Respiratory Rate 20 Blood Pressure 125/63 Pulse Oximetry 95 95 Oxygen Delivery Room Air Fraction of Inspired Oxygen 04/14/25 08:54 04/14/25 09:11 04/14/25 10:11 Temperature 98.3 F 98.6 F 98.4 F Pulse Rate 83 87 84 Pulse Rate [Bilateral Radial] Respiratory Rate 20 12 16 Blood Pressure 125/63 112/57 L 124/68 Pulse Oximetry 95 97 96 Oxygen Delivery Fraction of Inspired Oxygen 04/14/25 11:00 04/14/25 11:00 04/14/25 11:20 Temperature 97 F L 97.6 F 97.7 F Pulse Rate 86 86 79 Pulse Rate [Bilateral Radial] Respiratory Rate 20 20 20 Blood Pressure 142/63 H 142/63 H 135/59 L Pulse Oximetry 97 97 95 Oxygen Delivery Room Air Fraction of Inspired Oxygen 04/14/25 11:39 04/14/25 11:49 04/14/25 11:59 Temperature Pulse Rate 83 89 82 Pulse Rate [Bilateral Radial] Respiratory Rate 22 H 21 H 15 Blood Pressure 101/49 L 101/47 L 116/66 Pulse Oximetry 99 98 99 Oxygen Delivery Room Air Room Air Room Air Fraction of Inspired Oxygen Intake/Output Intake/Output: Intake & Output 04/11/25 04/12/25 04/13/25 04/14/25 23:59 23:59 23:59 23:59 Intake Total 1342 1370 Output Total 1100 600 Balance 242 770 Meds/Results Medications: Active Medications Generic Name Dose Route Start Last Admin Trade Name Norbert PRN Reason Stop Dose Admin Sodium Chloride 1,000 mls @ 125 mls/hr 04/14/25 00:00 04/14/25 13:06 Normal Saline Iv IV CONT Not Given .Q8H UZMA Lorazepam 2 mg 04/13/25 14:51 Lorazepam Inj (*Crx) 2 Mg/Ml Vial IV PUSH Q4H PRN CIWA 8-15 Melatonin 5 mg 04/13/25 21:00 04/13/25 20:52 Melatonin 5 Mg Tablet PO 5 mg HS UZMA Administration Pantoprazole Sodium 40 mg 04/13/25 21:00 04/14/25 08:46 Pantoprazole Sodium Iv 40 Mg Vial IV PUSH 40 mg Q12HR UZMA Administration Radiology Results: ITS Impressions Abdomen/Pelvis CT 04/13/25 13:04 IMPRESSION: 1. Findings suggestive peptic ulcer disease with 4.5 x 4.1 cm gastric ulcer along the lesser curvature of the stomach but without abscess or free intraperineal gas or fluid to suggest a full-thickness perforation. Activity in the extent posterior to the pancreas which appears normal but would consider correlation with lipase levels to exclude acute interstitial pancreatitis although suspicion is low. 2. Large fat-containing hiatal hernia. Labs Labs: Laboratory Results - last 24 hr 04/13/25 04/13/25 04/13/25 11:26 18:23 18:53 WBC RBC Hgb 6.9 L* Hct 21.5 L MCV MCH MCHC RDW Plt Count MPV Immature Gran % (Auto) Neut % (Auto) Lymph % (Auto) [place] % (Auto) Eos % (Auto) Baso % (Auto) Lymph # (Auto) [place] # (Auto) Eos # (Auto) Baso # (Auto) Abs Immat Gran (auto) Absolute Neuts (auto) Absolute Nucleated RBC Nucleated RBC % Sodium 125 L Potassium 3.4 Chloride 95 L Carbon Dioxide 26 Anion Gap 4 BUN 15 D Creatinine 0.48 L Estim Creat Clear Calc 102 Estimated GFR > 60 Glucose 85 POC Capillary Glucose 87 Calcium 7.8 L Total Bilirubin 0.6 AST 22 ALT 15 Alkaline Phosphatase 52 Total Protein 6.0 L Albumin 2.9 L POC H. pylori Urease Blood Type A Negative Antibody Screen Negative Crossmatch See Detail 04/13/25 04/14/25 04/14/25 23:34 00:19 12:11 WBC 11.0 H RBC 3.16 L Hgb 6.5 L* 9.1 L Hct 19.2 L* 27.8 L MCV 88.0 D MCH 28.8 MCHC 32.7 RDW 16.4 H Plt Count 309 MPV 8.1 Immature Gran % (Auto) 0.8 H Neut % (Auto) 83.5 H Lymph % (Auto) 7.0 L [place] % (Auto) 7.5 Eos % (Auto) 0.7 Baso % (Auto) 0.5 Lymph # (Auto) 0.77 L [place] # (Auto) 0.8 H Eos # (Auto) 0.1 Baso # (Auto) 0.1 Abs Immat Gran (auto) 0.09 H Absolute Neuts (auto) 9.2 H Absolute Nucleated RBC 0.000 Nucleated RBC % 0.0 Sodium Potassium Chloride Carbon Dioxide Anion Gap BUN Creatinine Estim Creat Clear Calc Estimated GFR Glucose POC Capillary Glucose 90 Calcium Total Bilirubin AST ALT Alkaline Phosphatase Total Protein Albumin POC H. pylori Urease Blood Type Antibody Screen Crossmatch 04/14/25 04/14/25 12:41 12:50 WBC RBC Hgb Hct MCV MCH MCHC RDW Plt Count MPV Immature Gran % (Auto) Neut % (Auto) Lymph % (Auto) [place] % (Auto) Eos % (Auto) Baso % (Auto) Lymph # (Auto) [place] # (Auto) Eos # (Auto) Baso # (Auto) Abs Immat Gran (auto) Absolute Neuts (auto) Absolute Nucleated RBC Nucleated RBC % Sodium Potassium Chloride Carbon Dioxide Anion Gap BUN Creatinine Estim Creat Clear Calc Estimated GFR Glucose POC Capillary Glucose 73 Calcium Total Bilirubin AST ALT Alkaline Phosphatase Total Protein Albumin POC H. pylori Urease Negative Blood Type Antibody Screen Crossmatch
[2025-04-14 23:39] LABS: Glucose Point of Care 80 mg/dl (65-105)
[2025-04-15] VITALS (8 sets, daily range): BP systolic 121–138; BP diastolic 64–68; PULSE 61–92; RESP 16–20; TEMP 36.4–36.8; O2SAT 91–100
[2025-04-15 04:24] LABS: Hematocrit 26.6 % (42.0-52.0); Hemoglobin 8.8 g/dL (14.0-18.0); Mean Corpuscular HGB Conc 33.1 g/dl (32-36); Mean Corpuscular Hemoglobin 28.8 pg (26-34); Mean Corpuscular Volume 86.9 fl (80-100); Platelet Count Result 322 k/mm3 (150-375); Red Blood Count 3.06 M/mm3 (4.6-6.20); Red Cell Distribution Width 16.3 % (11.5-14.5); White Blood Count 10.1 K/mm3 (4.5-10.0)
[2025-04-15 04:38] LABS: Alanine Aminotransferase 12 U/L (6-50); Albumin Level 2.5 g/dL (3.5-5.1); Alkaline Phosphatase 48 U/L (38-126); Anion Gap 3 mmol/L (4-12); Aspartate Amino Transferase 25 U/L (17-59); Bilirubin,Total 0.4 mg/dL (0.2-1.3); Blood Urea Nitrogen 5 mg/dL (9-20); Calcium 7.8 mg/dL (8.4-10.2); Carbon Dioxide 26 mmol/L (22-30); Chloride 99 mmol/L (98-107); Estimated CRCL calculation 118 ml/min; Estimated Glomerular Filt Rate > 60; Glucose 78 mg/dL (65-110); Potassium 3.5 mmol/L (3.4-5.0); Sodium 128 mmol/L (137-145)
[2025-04-15] MEDS: PANTOPRAZOLE SODIUM IV 40 MG VIAL IV PUSH (10:09)
--- NOTE | 2025-04-15 10:43 | P.DS_ITS ---
DS: Admitting Diagnosis Discharge Date 04/15/2025 Admitting Diagnosis Black tardy stools DS: Discharge Diagnosis Discharge Diagnosis (1) Acute upper GI bleed: Code(s): K92.2 - Gastrointestinal hemorrhage, unspecified Status: Acute Assessment and Plan: EGD on 04/15 shows large gastric ulcer and gastritis. Recommend Protonix 40 mg p.o. b.i.d.. Repeat EGD within 3 months. (2) Acute blood loss anemia: Code(s): D62 - Acute posthemorrhagic anemia Status: Acute Assessment and Plan: Hemoglobin on admission is 5.6 Transfuse 2 units RBCs Q.6 hour H&H Transfuse for hemoglobin less than 7 or symptomatic (3) Gastric ulcer: Code(s): K25.9 - Gastric ulcer, unspecified as acute or chronic, without hemorrhage or perforation Status: Acute Assessment and Plan: Likely cause of GI bleed Protonix and Pepcid (4) ETOH abuse: Code(s): F10.10 - Alcohol abuse, uncomplicated Status: Acute Assessment and Plan: Monitor for withdrawals Banana bag and thiamine Patient states that he withdrawals at home, and has been symptom free for the past several days (5) Hyponatremia: Code(s): E87.1 - Hypo-osmolality and hyponatremia Status: Inactive Assessment and Plan: IV hydration Repeat BMP in the morning (6) Leukocytosis: Qualifiers: Leukocytosis type: unspecified Qualified Code(s): D72.829 - Elevated white blood cell count, unspecified Code(s): D72.829 - Elevated white blood cell count, unspecified Status: Inactive Assessment and Plan: Could be reactive No acute infective process seen on CT DS: Summary Hospital Course Hospital Course: 74-year-old male history of ETOH use presents the hospital with black tarry stools. Patient states that he has been sober for the last week and half. Of note patient was seen in the emergency room on 04/06/2025 due to black tarry stools and decided to leave AMA before lab work ordered back is hemoglobin was 6.6 at that time. Patient states that he a black tar stools whole time he was at home. He was starting to feel weak so he came into the hospital. He denies vomiting. He states that he has barely been able to eat or drink due to not feeling well. Lab work in the ED shows leukocytosis at 13.2 anemia of 5.4, PTT, INR and PT are within normal range, sodium is 126, chloride 92, BUN 21, creatinine 0.57,, calcium 8.2, albumin 3.1. CT abdomen pelvis show Findings suggestive peptic ulcer disease with 4.5 x 4.1 cm gastric ulcer along the lesser curvature of the stomach but without abscess or free intraperineal gas or fluid to suggest a full-thickness perforation. And activity in the extent posterior to the pancreas which appears normal but would consider correlation with lipase levels to exclude acute interstitial pancreatitis although suspicion is low. Patient underwent EGD on 04/14 which shows large gastric ulcer, some vessels were cauterized. GI evaluated the patient this morning and advised to monitor the patient for 48 hours with serial H&H and watching his stool output and the hemodynamic status. Patient do not agree with the plan under want to give AMA. Later GI agrees with discharging the patient on Protonix 40 mg p.o. b.i.d. and repeat the EGD within 3 months. I explained the risk and benefits of leaving the hospital today versus staying for another 2 days to monitor H&H and bleeding. Patient wanted to be discharged today. I explained the importance of taking Protonix 40 mg p.o. b.i.d. and repeating the EGD within 3 months. Patient agrees and verbalized the plan. On the day of discharge, the patient was seen and examined. Vital signs were stable. Physical exam were stable and labs were reviewed at length. Discharge instructions, medications, and follow-up appointments were discussed with the patient at length and all day questions were answered. ER warnings were given. Status at Discharge Cognitive/behavioral status at discharge: Guarded Time Spent with Patient Time attestation: Total time spent providing and/or coordinating discharge services: 45 minutes Exam Narrative: General: Chronically ill HEENT: normocephalic, atraumatic. Mucous membranes moist. EOMI, PERRLA, bilateral sclera anicteric, no conjunctival injection. Neck supple without JVD, lymphadenopathy, or bruit. Respiratory: clear to ascultation bilaterally. No rales/rhonic/wheezes. Cardiovascular: Regular rate and rhythm, normal S1-S2 upon ascultation. No murmurs, rubs, or clicks. PMI is nondisplaced, capillary refill less than 3 second. Abdomen: Soft, round, no pulsatile masses, nondistended and nontender. No rebound, no guarding. No CVA tenderness, no hepatosplenomegaly. Bowel sounds present to all four quadrants. No high pitch or tinkling sounds, resonant to percussion. Extremities: No cyanosis, clubbing, or edema present. Pulses are palpable 2/2. Active ROM to all four extremities. Neuro: Alert and orientated x 4. PERRLA. Cranial nerves 2-12 intact without focal deficit. Skin: Warm, dry, and intact, without rash, erythema, or lesion. Psych: pleasant, cooperative, normal speech, normal affect, no hallucinations, no dysarthia DS: Data Data Completed and Pending Pending studies at discharge: Pending at discharge 04/14/25 11:40 Surgical [PTH] Routine Labs on day of discharge: Labs from last 24 hours 04/15/25 04/14/25 04/14/25 04:13 23:34 12:50 WBC 10.1 H RBC 3.06 L Hgb 8.8 L Hct 26.6 L MCV 86.9 MCH 28.8 MCHC 33.1 RDW 16.3 H Plt Count 322 MPV 8.0 Immature Gran % (Auto) Neut % (Auto) Lymph % (Auto) [place] % (Auto) Eos % (Auto) Baso % (Auto) Lymph # (Auto) [place] # (Auto) Eos # (Auto) Baso # (Auto) Abs Immat Gran (auto) Absolute Neuts (auto) Absolute Nucleated RBC Nucleated RBC % Sodium 128 L Potassium 3.5 Chloride 99 Carbon Dioxide 26 Anion Gap 3 L BUN 5 L D Creatinine 0.42 L Estim Creat Clear Calc 118 Estimated GFR > 60 Glucose 78 POC Capillary Glucose 80 Calcium 7.8 L Total Bilirubin 0.4 AST 25 ALT 12 Alkaline Phosphatase 48 Total Protein 5.0 L Albumin 2.5 L POC H. pylori Urease Negative Crossmatch 04/14/25 04/14/25 04/13/25 12:41 12:11 11:26 WBC 11.0 H RBC 3.16 L Hgb 9.1 L Hct 27.8 L MCV 88.0 D MCH 28.8 MCHC 32.7 RDW 16.4 H Plt Count 309 MPV 8.1 Immature Gran % (Auto) 0.8 H Neut % (Auto) 83.5 H Lymph % (Auto) 7.0 L [place] % (Auto) 7.5 Eos % (Auto) 0.7 Baso % (Auto) 0.5 Lymph # (Auto) 0.77 L [place] # (Auto) 0.8 H Eos # (Auto) 0.1 Baso # (Auto) 0.1 Abs Immat Gran (auto) 0.09 H Absolute Neuts (auto) 9.2 H Absolute Nucleated RBC 0.000 Nucleated RBC % 0.0 Sodium Potassium Chloride Carbon Dioxide Anion Gap BUN Creatinine Estim Creat Clear Calc Estimated GFR Glucose POC Capillary Glucose 73 Calcium Total Bilirubin AST ALT Alkaline Phosphatase Total Protein Albumin POC H. pylori Urease Crossmatch See Detail Discharge Plan Discharge Attending physician on discharge: Soto Ulloa Discharging Clinician: Soto Ulloa Anticipated Discharge Date/Time: 04/15/25 10:49 Patient Disposition: Home Activity: as tolerated Diet: bland and other - see discharge instructions Discharge Instructions: Follow up outpatient for EGD in 3 months. Abstinence from alcohol Patient needs close follow-up with [facility] for any bleeding/tarry color stool In the event of palpitation, tightness or shortness of breath please return to ED. It can be signs of anemia Avoid taking NSAIDs. Patient Instructions: Antibiotic Form Patient Language: Luxembourgish Stand Alone Forms: General Discharge Information Follow-up/Referrals: Alban Srinivasan MD [Physician] - (Call office to schedule follow up. Outpatient EGD needed for follow up in 3 months. ) Discharge Medications: New pantoprazole [Protonix] 40 mg tablet,delayed release (DR/EC) 40 mg PO BID Qty: 120 0RF sucralfate [Carafate] 1 gram tablet 1 g PO DAILY Qty: 30 0RF Date of admission: 04/14/25 13:37 Primary Care Provider: Kit Appiah Admitting Provider: Jennifer Salas Attending physician on admission: Jennifer Salas Condition: Serious
--- NOTE | 2025-04-15 10:56 | WPDGIPROGNO ---
Progress Note: A&P Assessment and Plan (1) Gastric ulcer: Code(s): K25.9 - Gastric ulcer, unspecified as acute or chronic, without hemorrhage or perforation Status: Acute Assessment and Plan: The patient was advised to remain hospitalized for least 24-48 hours but he had adamantly refused and is insisting in going home AMA. He will need an EGD in 3 month and continue taking Pantoprazole 40 mg biD continuously,. He was also advised not to drink alcohol and avoid NSAIDS. Subjective Date/time seen: 04/15/25 10:56 Objective Data Vital Signs Vital Signs: Vital Signs - 24 hr 04/14/25 11:00 04/14/25 11:00 04/14/25 11:20 Temperature 97 F L 97.6 F 97.7 F Pulse Rate 86 86 79 Pulse Rate [Bilateral Radial] Respiratory Rate 20 20 20 Blood Pressure 142/63 H 142/63 H 135/59 L Pulse Oximetry 97 97 95 Oxygen Delivery Room Air Fraction of Inspired Oxygen 04/14/25 11:39 04/14/25 11:49 04/14/25 11:59 Temperature Pulse Rate 83 89 82 Pulse Rate [Bilateral Radial] Respiratory Rate 22 H 21 H 15 Blood Pressure 101/49 L 101/47 L 116/66 Pulse Oximetry 99 98 99 Oxygen Delivery Room Air Room Air Room Air Fraction of Inspired Oxygen 04/14/25 14:00 04/14/25 16:00 04/14/25 16:00 Temperature Pulse Rate 84 76 Pulse Rate [Bilateral Radial] 76 Respiratory Rate Blood Pressure Pulse Oximetry Oxygen Delivery Fraction of Inspired Oxygen 04/14/25 16:00 04/14/25 16:40 04/14/25 18:00 Temperature 98.2 F Pulse Rate 86 79 Pulse Rate [Bilateral Radial] Respiratory Rate 16 Blood Pressure 123/65 Pulse Oximetry 97 97 Oxygen Delivery Room Air Fraction of Inspired Oxygen 04/14/25 19:37 04/14/25 20:00 04/14/25 20:00 Temperature 100.4 F H Pulse Rate 79 79 Pulse Rate [Bilateral Radial] 75 Respiratory Rate 16 16 Blood Pressure 135/65 135/65 Pulse Oximetry 98 98 Oxygen Delivery Room Air Fraction of Inspired Oxygen 21 04/14/25 20:00 04/14/25 21:07 04/14/25 22:00 Temperature Pulse Rate 79 72 Pulse Rate [Bilateral Radial] Respiratory Rate Blood Pressure Pulse Oximetry 98 Oxygen Delivery Room Air Fraction of Inspired Oxygen 04/14/25 23:36 04/15/25 00:00 04/15/25 00:00 Temperature 97.7 F Pulse Rate 79 72 Pulse Rate [Bilateral Radial] 74 Respiratory Rate 16 16 Blood Pressure 125/68 125/68 Pulse Oximetry 97 97 Oxygen Delivery Room Air Fraction of Inspired Oxygen 04/15/25 00:00 04/15/25 02:00 04/15/25 03:21 Temperature 98.2 F Pulse Rate 72 76 92 Pulse Rate [Bilateral Radial] Respiratory Rate 16 Blood Pressure 121/64 Pulse Oximetry 98 Oxygen Delivery Fraction of Inspired Oxygen 04/15/25 04:00 04/15/25 04:00 04/15/25 04:00 Temperature Pulse Rate 68 68 Pulse Rate [Bilateral Radial] 68 Respiratory Rate 16 Blood Pressure 121/64 Pulse Oximetry 98 Oxygen Delivery Room Air Fraction of Inspired Oxygen 04/15/25 05:41 04/15/25 08:00 04/15/25 08:00 Temperature 98 F Pulse Rate 66 78 Pulse Rate [Bilateral Radial] Respiratory Rate 20 Blood Pressure 138/66 Pulse Oximetry 100 100 Oxygen Delivery Room Air Fraction of Inspired Oxygen Intake/Output Intake/Output: Intake & Output 04/12/25 04/13/25 04/14/25 04/15/25 23:59 23:59 23:59 23:59 Intake Total 1342 1490 Output Total 1100 850 500 Balance 242 640 -500 Meds/Results Medications: Active Medications Generic Name Dose Route Start Last Admin Trade Name Freq PRN Reason Stop Dose Admin Lorazepam 2 mg 04/13/25 14:51 Lorazepam Inj (*Crx) 2 Mg/Ml Vial IV PUSH Q4H PRN CIWA 8-15 Melatonin 5 mg 04/13/25 21:00 04/14/25 20:18 Melatonin 5 Mg Tablet PO Not Given HS UZMA Pantoprazole Sodium 40 mg 04/13/25 21:00 04/15/25 10:09 Pantoprazole Sodium Iv 40 Mg Vial IV PUSH 40 mg Q12HR UZMA Administration Radiology Results: ITS Impressions Abdomen/Pelvis CT 04/13/25 13:04 IMPRESSION: 1. Findings suggestive peptic ulcer disease with 4.5 x 4.1 cm gastric ulcer along the lesser curvature of the stomach but without abscess or free intraperineal gas or fluid to suggest a full-thickness perforation. Activity in the extent posterior to the pancreas which appears normal but would consider correlation with lipase levels to exclude acute interstitial pancreatitis although suspicion is low. 2. Large fat-containing hiatal hernia. Labs Labs: Laboratory Results - last 24 hr 04/13/25 04/14/25 04/14/25 11:26 12:11 12:41 WBC 11.0 H RBC 3.16 L Hgb 9.1 L Hct 27.8 L MCV 88.0 D MCH 28.8 MCHC 32.7 RDW 16.4 H Plt Count 309 MPV 8.1 Immature Gran % (Auto) 0.8 H Neut % (Auto) 83.5 H Lymph % (Auto) 7.0 L [place] % (Auto) 7.5 Eos % (Auto) 0.7 Baso % (Auto) 0.5 Lymph # (Auto) 0.77 L [place] # (Auto) 0.8 H Eos # (Auto) 0.1 Baso # (Auto) 0.1 Abs Immat Gran (auto) 0.09 H Absolute Neuts (auto) 9.2 H Absolute Nucleated RBC 0.000 Nucleated RBC % 0.0 Sodium Potassium Chloride Carbon Dioxide Anion Gap BUN Creatinine Estim Creat Clear Calc Estimated GFR Glucose POC Capillary Glucose 73 Calcium Total Bilirubin AST ALT Alkaline Phosphatase Total Protein Albumin POC H. pylori Urease Crossmatch See Detail 04/14/25 04/14/25 04/15/25 12:50 23:34 04:13 WBC 10.1 H RBC 3.06 L Hgb 8.8 L Hct 26.6 L MCV 86.9 MCH 28.8 MCHC 33.1 RDW 16.3 H Plt Count 322 MPV 8.0 Immature Gran % (Auto) Neut % (Auto) Lymph % (Auto) [place] % (Auto) Eos % (Auto) Baso % (Auto) Lymph # (Auto) [place] # (Auto) Eos # (Auto) Baso # (Auto) Abs Immat Gran (auto) Absolute Neuts (auto) Absolute Nucleated RBC Nucleated RBC % Sodium 128 L Potassium 3.5 Chloride 99 Carbon Dioxide 26 Anion Gap 3 L BUN 5 L D Creatinine 0.42 L Estim Creat Clear Calc 118 Estimated GFR > 60 Glucose 78 POC Capillary Glucose 80 Calcium 7.8 L Total Bilirubin 0.4 AST 25 ALT 12 Alkaline Phosphatase 48 Total Protein 5.0 L Albumin 2.5 L POC H. pylori Urease Negative Crossmatch
== END 2025-04-15 12:56 | disposition home or self-care (01) | DRG 378 ==
LOC: ANHED 12:45 → ANHIMU 13:43
PROVIDERS: Internal Medicine; Internal Medicine Gastroenterology; Nurse Practitioner Gerontology; Student in an Organized Health Care Education/Training Program; Admitting Provider Internal Medicine; Emergency Provider Emergency Medicine; PCP Internal Medicine; Visit Provider General Practice
PROC: 0DJ08ZZ Inspection of Upper Intestinal Tract, Via Natural or Artificial Opening Endoscopic (ICD-10-PCS; principal; 2025-04-14 15:00)
DX: K25.4 Chronic or unspecified gastric ulcer with hemorrhage (principal); D62 Acute posthemorrhagic anemia; E87.1 Hypo-osmolality and hyponatremia; K29.71 Gastritis, unspecified, with bleeding; K92.1 Melena; F10.10 Alcohol abuse, uncomplicated; F17.210 Nicotine dependence, cigarettes, uncomplicated; D72.829 Elevated white blood cell count, unspecified; Z79.1 Long term (current) use of non-steroidal anti-inflammatories (NSAID)
CPT/HCPCS: 36415; 36430; 74177; 80053; 82948; 83690; 85014; 85018; 85025; 85027; 85610; 85730; 86850; 86900; 86901; 86923; 87081; 88305; 88342; 96361; 96374; 96375; 99285; A9270; G0378; J2470; J2704; J3411; J3475; J3480; J7030; J7040; J7050; J7120; P9016; Q9967

== ENCOUNTER 2025-05-18 11:40 | Emergency (ER) | payer MEDICARE, SELFPAY ==
--- NOTE | ~2025-05-18 | CT_ITS ---
EXAM: CT abdomen pelvis w con - 05/18/2025 15:10 CDT History: 74 years old Male with constipation, abd pain, 100 ML TECHNIQUE: Multidetector CT of the abdomen and pelvis with intravenous contrast. Coronal and sagitta l reformats were also provided for review. Automatic exposure control was used for this study. CONTRAST: 100 cc of Optiray 350 was used for this study. COMPARISON: None Available. FINDINGS: VISUALIZED CHEST: Visualized lungs are clear. ABDOMEN and PELVIS: LIVER: Focal fatty infiltration around the falciform ligament. GALLBLADDER: No calcified gallstones. BILE DUCTS: No dilatation. SPLEEN: Within normal limits. PANCREAS: Within normal limits. ADRENAL GLANDS: Within normal limits. KIDNEYS and URETERS: No hydronephrosis or hydroureter. No nephroureterolithiasis. URINARY BLADDER: Within normal limits. STOMACH and BOWEL: No abnormal bowel wall thickening. No obstruction. Colonic diverticulosis, without diverticulitis. REPRODUCTIVE ORGANS: Within normal limits. MESENTERY/PERITONEAL CAVITY: No free fluid or pneumoperitoneum. LYMPH NODES: No abdominal or pelvic lymphadenopathy. ABDOMINAL WALL: Fat-containing large left inguinal hernia. VASCULATURE: Within normal limits. MUSCULOSKELETAL: Multilevel degenerative changes of the spine. IMPRESSION: 1. No evidence of acute pathology in the abdomen and pelvis. 2. Large fat-containing left inguinal hernia. Reviewed, dictated and finalized at location A.
[2025-05-18 11:43] VITALS: BP 120/100; PULSE 103; RESP 20; TEMP 36.7; O2SAT 100
--- NOTE | 2025-05-18 13:50 | ED.ABDPAIN ---
HPI - Abdominal Pain General Chief Complaint: Abdominal Pain <Nara Chew PA-C - Last Filed: 05/18/25 18:57> Stated Complaint: abd. pain and constipation <Nara Chew PA-C - Last Filed: 05/18/25 18:57> Time Seen by Provider: 05/18/25 15:12 <Nara Chew PA-C - Last Filed: 05/18/25 18:57> Focused HPI: 74 y/o M presents to the ED for diffuse abdominal pain and constipation x5 days. Pt had an EGD on 04/14/25 for upper GI bleed which showed gastritis and ulcer. Patient was discharged home with Protonix and sucralfate which he has been taking. States over the past 5 days he has become constipated with diffuse abdominal pain. He denies obstipation. States his last bowel movement was 5 days ago and firm. He denies nausea, vomiting, fevers, urinary symptoms. States he has not any normal melena or hematochezia. GENERAL: Well-appearing, well-nourished, and in no acute distress. HEAD: Normocephalic, atraumatic. CHEST: Clear to auscultation. ?No respiratory distress. HEART: Regular rate and rhythm.? NEURO: ?Alert and oriented x3. Patient screened in triage and initial orders placed.? ?Additional care and disposition to be based upon?diagnostic testing and treatment. <Nara Chew PA-C - Last Filed: 05/18/25 18:57> History of Present Illness HPI narrative: Agree with the above with the following additions/corrections: Reports low abdominal pain. EGD was performed without concommitant colonoscopy. No one with similar symptoms. ELIUD yesterday AM, 2 waffles. Reports LBM being 1 week ago. Still passing flatus. No N/V, F/C. Not on opiates. Trialing special diet but calls it chipmunk food. Decreased PO intake. Pain radiates towards back. Also taking Ducolax and metamucil. States the last BM he had was hard/firm. <Keily Keys MD - Last Filed: 05/21/25 00:42> Related Data Allergies/Adverse Reactions: Allergies Allergy/AdvReac Type Severity Reaction Status Date / Time No Known Allergies Allergy Verified 05/18/25 11:49 <NASEEM Hernandez Last Filed: 05/18/25 18:57> [facility] Past Medical History Medical History: Medical History Gastric ulcer on EGD 04/14/25 Gastritis on EGD 04/14/25 <NASEEM Hernandez Last Filed: 05/18/25 18:57> Surgical History Surgical History: Surgical History History of esophagogastroduodenoscopy (EGD) 04/14/2025; Dr Stein <NASEEM Hernandez Last Filed: 05/18/25 18:57> Family History Family History: Family History Father Alcohol abuse <NASEEM Hernandez Last Filed: 05/18/25 18:57> Social History Social History: Social History (Updated 05/18/25 @ 16:50 by Keily Keys MD) Smoking packs per day: 1.5 Smoking cigarettes per day: 30.0 Smoking status: Current every day smoker Tobacco type: cigarettes Second hand tobacco smoke exposure: Yes Alcohol intake: current Drinks per week: 25 Substance use: current Substance use type: marijuana Last use: 03/28/25 Do You Feel Safe in your Home?: Yes Lack of Transportation: No Lack of Food: Never True Current Housing: I Have Housing Concerned About Future Housing: No Difficulty Paying Gas/Electric Bills: No Difficulty Paying for Meds: No Currently Unemployed: No Education: Trade/Vocational Certificate Difficulty w/ Childcare or Family Care: No Occupation/Education: occupation 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 HEAD: Normocephalic, atraumatic. EYES: Non injected, non icteric ENT: Nares clear, no rhinorrhea or epistaxis. Gross auditory acuity intact. Tacky mucous membranes. NECK: Supple. No meningismus. CHEST: Speaking in full sentences. No respiratory distress. HEART: Regular rate and rhythm. . ABDOMEN: Soft, nondistended. No rigidity or guarding. Not peritoneal EXTREMITIES: Normal range of motion. No lower extremity edema. SKIN: Warm, dry, no rash. NEURO: No focal deficits. Alert and oriented. Answering questions. Following commands. Normal speech without aphasia or dysarthria. PSYCH: Normal mood and affect. <Keily Keys MD - Last Filed: 05/21/25 00:42> Course Vital Signs Vital signs: Vital Signs Temperature 98.1 F 05/18/25 11:43 Pulse Rate 103 H 05/18/25 11:43 Respiratory Rate 20 05/18/25 11:43 Blood Pressure 120/100 H 05/18/25 11:43 Pulse Oximetry 100 05/18/25 11:43 Oxygen Delivery Room Air 05/18/25 11:43 Temperature 98.1 F 05/18/25 11:43 Pulse Rate 78 05/18/25 17:44 Respiratory Rate 16 05/18/25 17:44 Blood Pressure 138/74 05/18/25 17:44 Pulse Oximetry 99 05/18/25 17:44 Oxygen Delivery Room Air 05/18/25 11:43 <Nara Chew PA-C - Last Filed: 05/18/25 18:57> Vital Signs Temperature 98.1 F 05/18/25 11:43 Pulse Rate 103 H 05/18/25 11:43 Respiratory Rate 20 05/18/25 11:43 Blood Pressure 120/100 H 05/18/25 11:43 Pulse Oximetry 100 05/18/25 11:43 Oxygen Delivery Room Air 05/18/25 11:43 Temperature 98.1 F 05/18/25 11:43 Pulse Rate 78 05/18/25 17:44 Respiratory Rate 16 05/18/25 17:44 Blood Pressure 138/74 05/18/25 17:44 Pulse Oximetry 99 05/18/25 17:44 Oxygen Delivery Room Air 05/18/25 11:43 <Keily Keys MD - Last Filed: 05/21/25 00:42> MDM - Abdominal Pain MDM Narrative Medical decision making narrative: Patient presents with abdominal pain and report of constipation. EGD approximately 1 month ago. In the emergency department he is afebrile with vital signs notable for mild tachycardia as well as hypertension. Chronic hyponatremia. Lipase elevated. He has a mild leukocytosis. Anemia stable. Thrombocytosis had previously been appreciated and is otherwise mild. Urinalysis with ketonuria. In sum, This patient presents with abdominal pain or unclear etiology. A CT scan was performed to evaluate for potential causes of the abdominal pain, however, neither the clinical exam nor the CT has identified an emergent etiology for the abdominal pain. Specifically, given the benign exam, the laboratory studies, and unremarkable CT, I have a very low suspicion for appendicitis, ischemic bowel, bowel perforation, or any other life threatening disease. We discussed that there did not seem to be prominent stool burden to support constipation. However, reasonable to trial staying hydrated and eating diet high in fiber and that fiber supplement / stool softeners still reasonable though laxatives (meds that increase motility) not necessary. I have discussed with the patient the level of uncertainty with undifferentiated abdominal pain and clearly explained the need to follow-up as noted on the discharge instructions, or return to the Emergency Department immediately if the pain worsens, develops fever, persistent and uncontrolled vomiting, or for any new symptoms or concerns. Given multimodal pain medication prescriptions but avoiding NSAIDs given gastritis/gastric ulcer found on recent EGD. <Keily Keys MD - Last Filed: 05/21/25 00:42> Differential Diagnosis Differential diagnosis: Likely abdominal pain, acute appendicitis, constipation, diverticulitis, pancreatitis, small bowel obstruction and other (UTI) <Keily Keys MD - Last Filed: 05/21/25 00:42> Medical Records Attestation: I reviewed the patient's medical records. <Keily Keys MD - Last Filed: 05/21/25 00:42> Medical records narrative: Reviewed EGD from 04/14/25 with diagnoses <Keily Keys MD - Last Filed: 05/21/25 00:42> Lab Data Attestation: I reviewed the patient's lab results. <Keily Keys MD - Last Filed: 05/21/25 00:42> Result diagrams: 05/18/25 14:00 05/18/25 14:01 <Nara Chew PA-C - Last Filed: 05/18/25 18:57> Labs: Lab Results 05/18/25 05/18/25 05/18/25 Range/Units 14:00 14:01 15:35 WBC 11.9 H (4.5-10.0) K/mm3 RBC 3.82 L (4.6-6.20) M/mm3 Hgb 10.6 L (14.0-18.0) g/dL Hct 32.0 L (42.0-52.0) % MCV 83.8 (80-100) fl MCH 27.7 (26-34) pg MCHC 33.1 (32-36) g/dl RDW 14.9 H (11.5-14.5) % Plt Count 403 H (150-375) k/mm3 MPV 8.1 (7.4-10.4) fl Immature Gran % (Auto) 0.3 (0-0.5) % Neut % (Auto) 82.2 H (45.5-73.1) % Lymph % (Auto) 9.5 L (18.3-44.2) % [place] % (Auto) 7.2 (2.6-8.5) % Eos % (Auto) 0.3 (0-4.4) % Baso % (Auto) 0.5 (0.2-1.2) % Lymph # (Auto) 1.13 (0.9-3.2) K/mm3 [place] # (Auto) 0.9 H (0.1-0.6) K/mm3 Eos # (Auto) 0.0 (0-0.3) K/mm3 Baso # (Auto) 0.1 (0.0-0.1) K/mm3 Abs Immat Gran (auto) 0.04 H (0.00-0.031) K/mm3 Absolute Neuts (auto) 9.8 H (1.3-6.7) K/mm3 Absolute Nucleated RBC 0.000 (0.0-0.012) K/mm3 Nucleated RBC % 0.0 (0.0-0.2) % Sodium 128 L (137-145) mmol/L Potassium 4.2 (3.4-5.0) mmol/L Chloride 92 L (98-107) mmol/L Carbon Dioxide 24 (22-30) mmol/L Anion Gap 12 (4-12) mmol/L BUN 7 L (9-20) mg/dL Creatinine 0.53 L (0.7-1.3) mg/dL Estim Creat Clear Calc Not Reportable Estimated GFR > 60 (59 - ) Glucose 101 (65-110) mg/dL Calcium 9.7 (8.4-10.2) mg/dL Total Bilirubin 0.3 (0.2-1.3) mg/dL AST 20 (17-59) U/L ALT 10 (6-50) U/L Alkaline Phosphatase 73 (38-126) U/L Total Protein 8.1 (6.3-8.2) g/dL Albumin 4.2 (3.5-5.1) g/dL Lipase 773 H (23-300) U/L Urine Color Yellow (Yellow) Urine Appearance Clear (Clear) Urine pH 6.5 (5.0-9.0) Ur Specific [place] 1.018 (1.001-1.035) Urine Protein 1+ H (Negative) mg/dL Urine Glucose (UA) Negative (Negative) mg/dL Urine Ketones 3+ H (Negative) mg/dL Ur Blood (Man) Negative (Negative) Urine Nitrate Negative (Negative) Urine Bilirubin Negative (Negative) Urine Urobilinogen 1.0 (<2.0) mg/dL Leukocyte Esterase Rfl Negative (Negative) IBIS/UL Urine RBC 0-2 (0-2) /hpf Urine WBC 0-5 (0-3) /hpf Ur Squamous Epith Cells None seen (Few) /hpf Urine Bacteria None seen /hpf Urine Casts 0-2 <Nara Chew PA-C - Last Filed: 05/18/25 18:57> Lab Results 05/18/25 05/18/25 05/18/25 Range/Units 14:00 14:01 15:35 WBC 11.9 H (4.5-10.0) K/mm3 RBC 3.82 L (4.6-6.20) M/mm3 Hgb 10.6 L (14.0-18.0) g/dL Hct 32.0 L (42.0-52.0) % MCV 83.8 (80-100) fl MCH 27.7 (26-34) pg MCHC 33.1 (32-36) g/dl RDW 14.9 H (11.5-14.5) % Plt Count 403 H (150-375) k/mm3 MPV 8.1 (7.4-10.4) fl Immature Gran % (Auto) 0.3 (0-0.5) % Neut % (Auto) 82.2 H (45.5-73.1) % Lymph % (Auto) 9.5 L (18.3-44.2) % [place] % (Auto) 7.2 (2.6-8.5) % Eos % (Auto) 0.3 (0-4.4) % Baso % (Auto) 0.5 (0.2-1.2) % Lymph # (Auto) 1.13 (0.9-3.2) K/mm3 [place] # (Auto) 0.9 H (0.1-0.6) K/mm3 Eos # (Auto) 0.0 (0-0.3) K/mm3 Baso # (Auto) 0.1 (0.0-0.1) K/mm3 Abs Immat Gran (auto) 0.04 H (0.00-0.031) K/mm3 Absolute Neuts (auto) 9.8 H (1.3-6.7) K/mm3 Absolute Nucleated RBC 0.000 (0.0-0.012) K/mm3 Nucleated RBC % 0.0 (0.0-0.2) % Sodium 128 L (137-145) mmol/L Potassium 4.2 (3.4-5.0) mmol/L Chloride 92 L (98-107) mmol/L Carbon Dioxide 24 (22-30) mmol/L Anion Gap 12 (4-12) mmol/L BUN 7 L (9-20) mg/dL Creatinine 0.53 L (0.7-1.3) mg/dL Estim Creat Clear Calc Not Reportable Estimated GFR > 60 (59 - ) Glucose 101 (65-110) mg/dL Calcium 9.7 (8.4-10.2) mg/dL Total Bilirubin 0.3 (0.2-1.3) mg/dL AST 20 (17-59) U/L ALT 10 (6-50) U/L Alkaline Phosphatase 73 (38-126) U/L Total Protein 8.1 (6.3-8.2) g/dL Albumin 4.2 (3.5-5.1) g/dL Lipase 773 H (23-300) U/L Urine Color Yellow (Yellow) Urine Appearance Clear (Clear) Urine pH 6.5 (5.0-9.0) Ur Specific [place] 1.018 (1.001-1.035) Urine Protein 1+ H (Negative) mg/dL Urine Glucose (UA) Negative (Negative) mg/dL Urine Ketones 3+ H (Negative) mg/dL Ur Blood (Man) Negative (Negative) Urine Nitrate Negative (Negative) Urine Bilirubin Negative (Negative) Urine Urobilinogen 1.0 (<2.0) mg/dL Leukocyte Esterase Rfl Negative (Negative) IBIS/UL Urine RBC 0-2 (0-2) /hpf Urine WBC 0-5 (0-3) /hpf Ur Squamous Epith Cells None seen (Few) /hpf Urine Bacteria None seen /hpf Urine Casts 0-2 <Keily Keys MD - Last Filed: 05/21/25 00:42> Imaging Data Attestation: I personally reviewed and interpreted this imaging study as follows: <Keily Keys MD - Last Filed: 05/21/25 00:42> My impression: Patient has some areas of stool burden though not to a degree to suggest significant constipation on my independent interpretation of CT scan. <Keily Keys MD - Last Filed: 05/21/25 00:42> Radiologist's impression: ITS Impressions Abdomen/Pelvis CT 05/18/25 15:33 IMPRESSION: 1. No evidence of acute pathology in the abdomen and pelvis. 2. Large fat-containing left inguinal hernia. <Nara Chew PA-C - Last Filed: 05/18/25 18:57> ITS Impressions Abdomen/Pelvis CT 05/18/25 15:33 IMPRESSION: 1. No evidence of acute pathology in the abdomen and pelvis. 2. Large fat-containing left inguinal hernia. <Keily Keys MD - Last Filed: 05/21/25 00:42> Discharge Plan Discharge Clinical Impression: Chronic hyponatremia, Hernia, inguinal, left, Leukocytosis, Anemia, Thrombocytosis, Abdominal pain, lower <NSAEEM Hernandez Last Filed: 05/18/25 18:57> Patient Disposition: Home <NASEEM Hernandez Last Filed: 05/18/25 18:57> Condition: Stable <NASEEM Hernandez Last Filed: 05/18/25 18:57> Instructions: Antibiotic Form, High Fiber Diet (ED), Hyponatremia (ED), Inguinal Hernia (ED), Leukocytosis (ED), Abdominal Pain (ED), Anemia (ED) <NASEEM Hernandez Last Filed: 05/18/25 18:57> Additional Instructions: As we discussed, the cause of your abdominal pain is unclear. Although you have not had a bowel movement in 1 week and her last 1 was hard, you do not have significant stool burden/constipation on your CT scan. Recommend you continue with the Metamucil/psyllium as this is fiber but also work to increase the fiber content in your diet and maintain your hydration by drinking plenty of water. You can use the prescribed MiraLax as this is also safe. Laxatives are not necessary at this time as we discussed. Acetaminophen/Tylenol (maximum 4000 mg per day) is safe to take for pain relief (but avoid NSAIDs like ibuprofen/Motrin given your ulcer/gastritis) . Bentyl/dicyclomine can help with the cramping pain you are experiencing as it works on the smooth muscle of your GI tract. You can follow-up with gastroenterology. Because you do not have a primary care physician the name of 1 is listed below. Continue taking the Protonix/pantoprazole as prescribed as this reduces the acid in your stomach. Return to the Emergency Department immediately if the pain worsens, develops fever, persistent and uncontrolled vomiting, or for any new symptoms or concerns. <NASEEM Hernandez Last Filed: 05/18/25 18:57> Patient Language: Venezuelan <NASEEM Hernandez Last Filed: 05/18/25 18:57> Prescriptions: New polyethylene glycol 3350 [Miralax] 17 gram/dose powder 17 g PO DAILY Qty: 119 0RF acetaminophen 500 mg capsule 1,000 mg PO Q6H PRN (Reason: pain) Qty: 30 0RF dicyclomine 10 mg capsule 10 mg PO BID PRN (Reason: abdominal pain) Qty: 20 0RF No Action pantoprazole [Protonix] 40 mg tablet,delayed release (DR/EC) 40 mg PO BID Qty: 120 0RF sucralfate [Carafate] 1 gram tablet 1 g PO DAILY Qty: 30 0RF <Nara Chew PA-C - Last Filed: 05/18/25 18:57> Follow-up/Referrals: PHYSICIAN,MAGNETIC LOCATER [Primary Care Provider] - nAdre Ly MD [Physician] - (performed your EGD) Fabrice Smith MD [Physician] - (family practice/PCP) Alban Srinivasan MD [Physician] - (saw patient while in hospital) <Nara Chew PA-C - Last Filed: 05/18/25 18:57> Stand Alone Forms: Work/School Release IP <Nara Chew PA-C - Last Filed: 05/18/25 18:57> Time of Disposition: 16:49 <Nara Chew PA-C - Last Filed: 05/18/25 18:57> 16:49 <Keily Keys MD - Last Filed: 05/21/25 00:42>
[2025-05-18 14:11] LABS: Basophils Absolute Auto 0.1 K/mm3 (0.0-0.1); Basophils Percent Auto 0.5 % (0.2-1.2); Eosinophils Percent Auto 0.3 % (0-4.4); Hemoglobin 10.6 g/dL (14.0-18.0); Immature Granulocyte Absolute 0.04 K/mm3 (0.00-0.031); Immature Granulocyte Percent A 0.3 % (0-0.5); Lymphocytes Absolute Auto 1.13 K/mm3 (0.9-3.2); Lymphocytes Percent Auto 9.5 % (18.3-44.2); Mean Corpuscular HGB Conc 33.1 g/dl (32-36); Mean Corpuscular Hemoglobin 27.7 pg (26-34); Mean Corpuscular Volume 83.8 fl (80-100); Mean Platelet Volume 8.1 fl (7.4-10.4); Monocytes Absolute Auto 0.9 K/mm3 (0.1-0.6); Monocytes Percent Auto 7.2 % (2.6-8.5); Neutrophils Absolute Auto 9.8 K/mm3 (1.3-6.7); Neutrophils Percent Auto 82.2 % (45.5-73.1); Platelet Count Result 403 k/mm3 (150-375); Red Blood Count 3.82 M/mm3 (4.6-6.20); Red Cell Distribution Width 14.9 % (11.5-14.5); White Blood Count 11.9 K/mm3 (4.5-10.0)
[2025-05-18 14:45] LABS: Alanine Aminotransferase 10 U/L (6-50); Albumin Level 4.2 g/dL (3.5-5.1); Alkaline Phosphatase 73 U/L (38-126); Anion Gap 12 mmol/L (4-12); Aspartate Amino Transferase 20 U/L (17-59); Bilirubin,Total 0.3 mg/dL (0.2-1.3); Blood Urea Nitrogen 7 mg/dL (9-20); Calcium 9.7 mg/dL (8.4-10.2); Carbon Dioxide 24 mmol/L (22-30); Chloride 92 mmol/L (98-107); Estimated Glomerular Filt Rate > 60; Glucose 101 mg/dL (65-110); Lipase 773 U/L (23-300); Potassium 4.2 mmol/L (3.4-5.0); Sodium 128 mmol/L (137-145); Total Protein 8.1 g/dL (6.3-8.2)
[2025-05-18 15:45] VITALS: BP 159/100; PULSE 95; RESP 12; O2SAT 100
[2025-05-18 15:49] LABS: Add Urine Microscopic? YES; Appearance Urine Clear (Clear); Bacteria Urine None Seen /hpf; Bilirubin Urine Negative (Negative); Blood Urine Negative (Negative); Color Urine Yellow (Yellow); Glucose Urine UA Negative (Negative); Ketones Urine 3+ mg/dL (Negative); Leukocyte Esterase Ur Negative LEU/UL (Negative); Nitrate Urine Negative (Negative); Non Pathogenic Casts 0-2; Protein Urine 1+ mg/dL (Negative); RBC Urine 0-2 /hpf (0-2); Specific Grav Ur 1.018 (1.001-1.035); Squamous Epithelial Cell Urine None Seen /hpf (Few); WBC Urine 0-5 /hpf (0-3); pH Urine 6.5 (5.0-9.0)
--- NOTE | 2025-05-18 16:56 | PC.NURSE ---
per EDP Massimo, gave patient water and saltine crackers.
[2025-05-18] MEDS: SODIUM CHLORIDE 0.9% IV 1,000 ML 999 ML IV CONT (17:05)
[2025-05-18] MEDS: BELLADONNA ALK/PHENOB ELIX 10 ML, MAG HYDROX/ALUMINUM HYD/SIMETH 30 ML, LIDOCAINE 2% VI... PO (17:06)
[2025-05-18] MEDS: MORPHINE SULFATE (*CRX) 4 MG/ML INJ 2 MG IV PUSH (17:06)
[2025-05-18] MEDS: ACETAMINOPHEN 500 MG TABLET 1000 MG PO (17:07)
[2025-05-18] MEDS: DICYCLOMINE HCL 10 MG CAPSULE 20 MG PO (17:08)
[2025-05-18] MEDS: KETOROLAC 15 MG/ML VIAL (*BKC) IV PUSH (17:08)
[2025-05-18 17:44] VITALS: BP 138/74; PULSE 78; RESP 16; O2SAT 99
== END 2025-05-18 17:58 | disposition home or self-care (01) ==
PROVIDERS: Physician Assistant; Emergency Provider Student in an Organized Health Care Education/Training Program
DX: E87.1 Hypo-osmolality and hyponatremia (principal); K40.90 Unilateral inguinal hernia, without obstruction or gangrene, not specified as recurrent; D72.829 Elevated white blood cell count, unspecified; D64.9 Anemia, unspecified; D75.839 Thrombocytosis, unspecified; R10.30 Lower abdominal pain, unspecified; F17.210 Nicotine dependence, cigarettes, uncomplicated; F12.90 Cannabis use, unspecified, uncomplicated
CPT/HCPCS: 36415; 74177; 80053; 81001; 83690; 85025; 96361; 96374; 96375; 99284; A9270; J1885; J2270; J7030; Q9967

== ENCOUNTER 2025-07-30 07:44 | Outpatient (CLI) | payer MEDICARE, SELFPAY ==
--- NOTE | ~2025-07-30 | CT_ITS ---
EXAMINATION: CT lung screening DATE: 07/30/2025 08:01 INDICATION: Personal history of nicotine dependence TECHNIQUE: Computed tomography (CT) of the chest was performed without intravenous contrast. The dose-length product was 72.00 mGy-cm. Automated exposure control and iterative reconstruction technique were employed. COMPARISON: CT dated 04/06/2025 FINDINGS: No significant pleural or pericardial effusion. Heart size normal. No significant pleural or pericardial effusion. No thoracic lymphadenopathy. There is emphysema. No endobronchial lesions. No pneumothorax. There is a 3 mm fissural nodule on the right moderate thoracic spondylosis. No focal lytic or blastic lesions. There is atherosclerosis of the aorta and coronary arteries without aneurysm. IMPRESSION: 1. Lung-RADS category 2: Benign appearance or behavior. Continue annual screening with noncontrast low-dose chest CT in 12 months. Reviewed, dictated and finalized at location O. IMPRESSION: 1. Lung-RADS category 2: Benign appearance or behavior. Continue annual screeni ng with noncontrast low-dose chest CT in 12 months.
== END 2025-07-30 07:45 | disposition home or self-care (01) ==
LOC: CHSIMG 07:45
PROVIDERS: PCP Family Medicine; Visit Provider Family Medicine
DX: Z12.2 Encounter for screening for malignant neoplasm of respiratory organs (principal); Z87.891 Personal history of nicotine dependence
CPT/HCPCS: 71271

== ENCOUNTER 2025-08-14 09:38 | Outpatient (CLI) | payer MEDICARE, SELFPAY ==
[2025-08-14 10:17] LABS: Strep Group A RT-PCR NOT DETECTED (Negative)
== END 2025-08-14 09:39 | disposition home or self-care (01) ==
LOC: CHSLAB 09:39
PROVIDERS: PCP Nurse Practitioner Family; Visit Provider Nurse Practitioner Family
DX: J02.9 Acute pharyngitis, unspecified (principal)
CPT/HCPCS: 87651